=== PATIENT | male | born 1975 | race Hispanic/Latino ===

== ENCOUNTER 2016-10-07 17:08 | Inpatient (IN) | payer OTHER, MEDICARE ==
[~2016-10-07] VITALS: Ht 177.8 cm; Wt 72.4 kg
[~2016-10-07 17:08] MED LIST: CLONAZEPAM1 MG PO; DEPAKOTE ER 25250 MG PO; DOLOPHINE10 MG PO; GABAPENTIN TAB600 MG PO; OXYCODONE HCL30 MG PO
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
--- NOTE | 2016-10-07 17:20 | NUR ---
SECURITY WANDED PT AND PT CHANGED INTO BLUE SCRUBS
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
--- NOTE | 2016-10-07 17:40 | NUR ---
DR MEAD AT BEDSIDE FOR EVAL
--- NOTE | 2016-10-07 17:49 | NUR ---
PT TRANSFERRED TO RM 15 WITHOUT ANY INCIDENT. IN RM REST AT THIS TIME SIITER ORDER FOOD TRAY
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
--- NOTE | 2016-10-07 18:40 | NUR ---
BLOOD WORK COLLECTED AND SENT TO LAB RAINBOW SET UNABLE TO COLLECT URINE AT THIS TIME PT STATED UNABLE TO VOID CONTAINER OF WATER GIVE TO PT FOR PO REHYDRATION PT FOOD TRAY ARRIVED AND GIVEN TO PT IS EAT AT THIS TIME SITTER AT BEDSIDE
[2016-10-07 18:44] LABS: ABSOLUTE BASOPHIL COUNT 0 /CUMM (0.0-0.2); ABSOLUTE EOSINOPHIL COUNT 0 /CUMM (0.0-0.7); ABSOLUTE GRANULOCYTE CT 5.6 /CUMM (1.4-6.5); ABSOLUTE LYMPH COUNT 1.7 /CUMM (1.2-3.4); ABSOLUTE MONOCYTE COUNT 0.2 /CUMM (0.10-0.60); BASOPHIL % 0.3 % (0.0-2.0); EOSINOPHIL % 0.2 % (0-5); GRANULOCYTE % 74.3 % (42.2-75.2); HEMATOCRIT 42.3 % (42-52); MEAN CORPUSCULAR HGB 30.8 PG (27.0-31.0); MEAN CORPUSCULAR HGB CONC 33.8 G/DL (33.0-37.0); MEAN CORPUSCULAR VOLUME 91.1 FL (80.0-94.0); PLATELET COUNT 203 /CUMM (130-400); RBC DISTRIBUTION WIDTH 13.1 % (11.5-14.5); RED BLOOD CELL CT 4.64 /CUMM (4.70-6.10); WHITE BLOOD CELL COUNT 7.5 /CUMM (4.8-10.8)
--- NOTE | 2016-10-07 18:53 | NUR ---
PT ABLE TO GIVE URINE AT THIS TIME...TRIO COLLECTED AND SENT TO LAB
[2016-10-07] MEDS ORDERED: ROXICODONE5 M1 PO (19:25)
--- NOTE | 2016-10-07 19:28 | NUR ---
PT ASLEEP AT THIS TIME, LYING ON LEFT SIDE. RESPIRATIONS EQUAL AND UNLABORED. SITTER AT DOOR.
--- NOTE | 2016-10-07 20:26 | NUR ---
PT ASLEEP AT THIS TIME. RESPIRATIONS EQUAL AND UNLABORED. SITTERS PRESENT FOR SAFETY.
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
--- NOTE | 2016-10-07 23:02 | NUR ---
PT ASLEEP AT THIS TIME. RESPIRATIONS EQUAL AND UNLABORED.
--- NOTE | 2016-10-08 01:04 | NUR ---
PT SLEEPING. EASILY AROUSED TO VERBAL STIMULATION. RESP UNLABORED. SITTER AT BEDSIDE.
--- NOTE | 2016-10-08 04:36 | NUR ---
PT SLEEPING. RESP UNLABORED. NO APPARENT DISTRESS, SITTER AT BEDSIDE.
--- NOTE | 2016-10-08 05:45 | NUR ---
PT C/O 9/10 LEG PAIN. PT MEDICATED WITH 30 MG OXYCODONE PER ORDER.
--- NOTE | 2016-10-08 06:30 | NUR ---
PT REPORTS PAIN DECREASING AFTER BEING MEDICATED
--- NOTE | 2016-10-08 07:12 | NUR ---
PT APPEARS TO BE SLEEPING AT THIS TIME REGULAR RESPIRATIONS AND EQUAL CHEST RISE AND FALL NOTED SITTER PRESENT IN BH AREA AWAITING CRISIS DISPO TODAY
--- NOTE | 2016-10-08 08:39 | NUR ---
PT RESTING IN ROOM AT THIS TIME; STATES HE FEELS "SO SO". DENIES NEEDING ANYTHING ELSE AT THIS TIME. CRISIS INTO EVAL.
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
--- NOTE | 2016-10-08 08:55 | NUR ---
ADDITIONAL OJ PROVIDED.
--- NOTE | 2016-10-08 08:55 | NUR ---
MED WITH MEDS PER NOV. PT VERIFIED ALL DOSAGES. TOLERATED ALL WELL. DENIES COMPLAINTS REMAINS CALM AND COOPERATIVE; PLEASANT
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
--- NOTE | 2016-10-08 11:03 | NUR ---
PT SLEEPING. WAKES TO VOICE AND STATES HE FEELS "GOOD, THE MEDICATIONS WORKED". B/P 90/52. PER MD RICKS, OK TO LET PT EAT LUNCH AND RE CHECK. SITTER REMAINS.
--- NOTE | 2016-10-08 11:31 | NUR ---
PT HAS EATEN LUNCH. REPEAT B/P 100/55. PT SITTING UP CONVERSING WITH NO COMPLAINTS, "I AM OK, JUST DEPRESSED". DENIES ANY PAIN. SITTER REMAINS.
--- NOTE | 2016-10-08 11:37 | NUR ---
REPORT GIVEN TO DAVID IN CPS. TRANSPORT CALLED.
--- NOTE | 2016-10-08 11:45 | NUR ---
ALL BELONGINGS AND VALUABLES HANDED TO MOUNIKA FROM SECURITY AND [facility] MAKSIM PT IN POSSESSION OF PROSTHESIS. AWAKE, ALERT AND CONVERSANT WITH NO COMPLAINTS.
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
[2016-10-08 13:22] VITALS: BP 103/50
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
[2016-10-08 16:17] VITALS: BP 109/62
--- NOTE | 2016-10-08 21:54 | NUR ---
PT IS CALM, COOPERATIVEWITH STAFF AND PEERS, AND COMPLIANT WITH UNIT RULES. PT IS MOSTLY IN ROOM, SLEEPING. PT IS ISOLATIVE AND WITHDRAWN, SPENDING LONG PERIODS IN ROOM. PT MOOD IS STABLE, AFFECT IS EUTHYMIC, COMMUNICATION IS NORMAL, AND APPETITE IS NORMAL.
--- NOTE | 2016-10-08 22:01 | NUR ---
PT MADE COMMENT IN REGARDS TO SI DURING 1600 VITALS. WHEN PT WAS QUESTIONS TO WHETHER HE HAD A PLAN PT DENIED, AND RESPONDED "NO" WHEN ASKED IF PT WOULD ATTEMPT TO CARRY ANYTHING OUT ON UNIT. CHARGE NURSE WAS NOTIFIED FOLLOWING THE EVENT.
[2016-10-09 07:39] VITALS: BP 119/76
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
--- NOTE | 2016-10-09 14:04 | NUR ---
PT IS COMPLIANT AND COOPERATIVE. MOOD IS STABLE WITH A FLAT AFFECT. PT DENIES SI AT THIS TIME, C/O CHRONIC PAIN. PT HAS BEEN WITHDRAWN AND ISOLATIVE IN ROOM MAJORITY OF DAY. PT PRESENT ON UNIT FOR MEALS AND VITALS. PT HAS REFUSED GROUPS. VITALS ARE STABLE, APPETITE IS GOOD.
[2016-10-09 15:57] VITALS: BP 134/69
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
--- NOTE | 2016-10-09 21:28 | NUR ---
PT HAS BEEN SLEEPING IN ROOM FOR MAJORITY OF EVENING. SLEPT THROUGH WRAP UP MEETING SO PT DID NOT ATTEND. WHEN VISIBLE ON UNIT PT IS MED SEEKING. SOCIAL WITH PEERS AND STAFF. NO SI REPORTED. PT HAS A STABLE MOOD AND IRRITABLE AFFECT AT TIMES.
--- NOTE | 2016-10-10 03:33 | NUR ---
PT. SLEPT WELL THIS SHIFT.
[2016-10-10 07:45] VITALS: BP 127/69
--- NOTE | 2016-10-10 09:27 | NUR ---
PT STATED WHEN ASKED THAT HE HAS SOME SUICIDAL THOUGHTS. HE DENIES ANY URGES TO ACT ON THOUGHTSW AND FEELS SAFE IN THE HOSPITAL. PT APPEARS SEDATED
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
--- NOTE | 2016-10-10 11:04 | SOCIAL WORKER PROG NOTE PSYCH ---
Social Work Progress Note Progress Note Patient continues to report +SI with no plan or intent to hurt himself while in the hospital. Patient has been sleeping frequently throughout the day, reporting feeling depressed and unmotivated. Patient reports that he has no support in the area and reports that family does not want to be involved with him. He reported that he may reach out to his mother and see if she would like to come in for a family meeting. He reports that his primary support is his girlfriend who lives in [place]. Patient encouraged to attend groups on the unit and reach out to local family for support.
--- NOTE | 2016-10-10 12:13 | NUR ---
PT APPEARS SEDATED ALL MORNING. HE DID NOT ATTEND ANY GROUPS AND IS FOCUSED ON HIS PAIN ISSUES AND HIS PAIN MEDS.PT STATED HE HAS SOME SUICIDAL THOUGHTS BUT WOULD NOT ACT ON THOUGHTS IN THE HOSPITAL
[2016-10-10 12:24] VITALS: BP 134/57
[2016-10-10 15:54] VITALS: BP 120/61
[2016-10-10 19:45] VITALS: BP 128/68
--- NOTE | 2016-10-10 21:51 | NUR ---
PT IS OFTEN LETHARGIC, SLEEPING LONG PERIODS IN ROOM, OUT OF MILIEU. PT IS GENERALLY COOPERATIVE WITH STAFF AND PEERS, AND COMPLIANT WITH UNIT RULES. PT MOOD IS STABLE, AFFECT IS EUTHYMIC, COMMUNICATION IS NORMAL, AND APPETITE IS NORMAL. PT DENIES SI AT THIS TIME.
--- NOTE | 2016-10-11 04:18 | NUR ---
SLEPT WELL OVERNIGHT. NO COMPLAINTS OFFERED.
[2016-10-11 09:05] VITALS: BP 142/74
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
[2016-10-11 12:15] VITALS: BP 139/79
--- NOTE | 2016-10-11 13:23 | NUR ---
Pt is present on the unit and does interact with peers and staff, attends groups however minimal interactions, mood is stable with flat depressed affect, reported passive SI today no plan or intent - this was communicated to Dr. Barba as well, has + appetite, no other complaints or issues reported or observed.
[2016-10-11 15:39] VITALS: BP 132/70
[2016-10-11 19:15] VITALS: BP 137/75
--- NOTE | 2016-10-11 19:47 | NUR ---
PT IS STABLE WITH BRIGHT FULL RANGE OF AFFECT. LESS LETHARGIC THIS AFTERNOON AND INTERACTING WITH PEERS/STAFF. WAS OUT IN THE COMMUNITY AND WATCHING A MOVIE WITH PEERS. CURRENTLY IN BED SLEEPING. NO COMPLAINTS. VS ARE STABLE AND DENIES AND SI/HI TO THIS MHW.
[2016-10-12 07:47] VITALS: BP 121/69
[2016-10-12 12:11] VITALS: BP 137/64
--- NOTE | 2016-10-12 13:29 | NUR ---
PT IS ISOALTIVE IN ROOM FOR MOST OF THE SHIFT. PT DROWSY AND WILL FALL ASLEEP IN WHEELCHAIR RANDOMLY AT TIMES. PT HAS NOT BEEN ATTENDING GROUPS. PT DOES COME OUT OF ROOM WHEN ASKED FOR VITALS AND MEALS. PT REPROTED SI THOUGHTS BUT HAD NO PLAN AND SAY THEY ARE JUST THOUGHTS. PT SAID HE WILL ALERT STAFF IF PLAN FORMS.
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
[2016-10-12 15:44] VITALS: BP 135/64; BP 144/64
[2016-10-12 19:43] VITALS: BP 148/73
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
--- NOTE | 2016-10-12 21:11 | IP INCIDENTAL NOTE PSYCH ---
Incidental Note Notation: patient found to have a number of his roxycodone pills in his room; appeared to be worn down; likely hoarding them. Discussed w/ RN to continue doing mouth checks, change to VPA liquid 500mg twice daily (starting tmr bc he is on extended release formulation, and crush roxycodone pills.
--- NOTE | 2016-10-12 21:36 | NUR ---
PT MADE SI STATEMENT DURING 1600 VITALS. DENIED HAVING A PLAN, DENIED HAVING WILL TO CARRY OUT ON UNIT. CHARGE NURSE WAS NOTIFIED AFTER EVENT.
--- NOTE | 2016-10-12 22:59 | NUR ---
BEDTIME MEDICATIONS ADMINISTERED; DEPAKOTE 50OMG LIQUID GIVEN; PT'S KLONOPIN 1MG, METHADONE 10MG, ZYPREXA 10MG, AND ROXYCODONE 30MG WERE ALL CRUSHED AND GIVEN TO PATIENT IN APPLESAUCE; MOUTH CHECK DONE, INCLUDING UNDER PATIENT'S TONGUE TO VERIFY THAT DEPAKOTE AND MEDS IN APPLESAUCE WERE SWALLOWED.
--- NOTE | 2016-10-13 07:03 | NUR ---
PATIENT SLEPT ALL NIGHT.
[2016-10-13 07:57] VITALS: BP 136/84
[2016-10-13 12:26] VITALS: BP 108/55
--- NOTE | 2016-10-13 13:28 | SOCIAL WORKER PROG NOTE PSYCH ---
Social Work Progress Note Progress Note Patient continues to endorse +SI today with no plan or intent but making comments such as "I wish I would just ." Patient reports not feeling safe to leave the hospital and was concerned when we started to discuss discharge. Patient refusing family involvement in treatment and is vague as to why he does not want family involved. Patient reports that he is attending groups and is trying to refrain from sleeping throughout the day. Patient difficult to engage in conversation and appears to possibly have ulterior motives as to why he needs to continue hospitalization.
--- NOTE | 2016-10-13 14:18 | NUR ---
PT ATTENDED ONE GROUP TODAY AND WAS UNABLE TO IDENTIFY A GOAL FOR HIMSELF . HE DENIED SUICIDAL THOUGHTS OR THOUGHTS OF SELF HARM. HE IS TAKING HIS MEDS AND APPEARS SEDATED. HE IS IN BED MOST OF THE DAY
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
[2016-10-13 16:14] VITALS: BP 118/58
[2016-10-13 19:35] VITALS: BP 137/66
--- NOTE | 2016-10-13 22:40 | NUR ---
Pt is bed during change of shift mood is stable little dizzy. No behavioral issues noted during the day, vital signs are stable appetite is good. will continue to monitor the pt overnight.
--- NOTE | 2016-10-14 04:52 | NUR ---
SLEPT POORLY, AWAKE IN INTERVALS NOT KNOWING WHAT HE WANTED EACH TIME. DOZING OFF IN WHEELCHAIR.
[2016-10-14 07:48] VITALS: BP 130/73
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
[2016-10-14 12:24] VITALS: BP 132/60
--- NOTE | 2016-10-14 14:39 | NUR ---
PT WAS IN AND OUT OF THE MILIEU. PT DID ATTEND PLANNING MEETING, AND PARTICIPATED, ALSO WENT TO FOCUS GROUP BUT ACCORDING TO FACILIATOR HE SLEPT THROUGH IT. IN THE MILIEU PT HAS SOME INTERACTIONS WITH PEERS AND STAFF BUT MAINLY KEEPS TO SELF. WHEN ASKED PT DOES HAVE THOUGHTS TO HURT HIMSELF, BUT DOES NOT HAVE A PLAN.
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
[2016-10-14 16:00] VITALS: BP 126/58
--- NOTE | 2016-10-14 17:03 | NUR ---
At 1600 vital signs pt reported passive SI, no plan, feels safe on the unit and would not try and harm self, Dr. Fatima informed of this as well, no further orders. Pt is present on the unit, social with peers and staff at times, pleasant to interact with, no other issues or concerns, all staff aware as well.
[2016-10-14 20:22] VITALS: BP 151/79
--- NOTE | 2016-10-14 22:47 | NUR ---
PT WITH THOROUGH MOUTH CHECKS NOW. ATTENDED AA MTG. SOCIAL WITH [employer] PEERS. IN BED EARLY. -SI, -HI, -AH, -VH.
--- NOTE | 2016-10-15 04:52 | NUR ---
PT UP X 1 FOR ROXYCODONE FOR 8/10 LEG AND LOWER BACK PAIN. SLEPT OTHERWISE.
[2016-10-15 07:48] VITALS: BP 141/80
--- NOTE | 2016-10-15 11:31 | NUR ---
PT IS STABLE WITH CONSTRICTED AFFECT. PT IS VERY LETHARGIC AND IS SEEN SLEEPING AT RANDOM INTERVALS SUCH WHEELING TO HIS ROOM AND FALLING ASLEEP IN THE HALLWAY. PT IS HOPEFULL AND IS ATTENDING ALL GROUPS. PT REPORTED HE WAS SUPPOSE TO BE IN COURT TODAY YET HE NEVER TOLD THE SW THIS SO NOW HE IS TRYING TO GET PAPERWORK TO SHOW HE IS CURRENTLY ON AN INPATIENT PSYCHIATRIC FACILITY. VS ARE STABLE AND DENIES ANY SI/HI TO THIS MHW.
[2016-10-15 12:18] VITALS: BP 141/66
[2016-10-15 15:32] VITALS: BP 142/64
--- NOTE | 2016-10-15 16:06 | SOCIAL WORKER PROG NOTE PSYCH ---
Social Work Progress Note Progress Note Patient continues to endorse passive SI with no specific plan. Patient continues to appear sedated on the unit and participates minimally in his treatment. Patient informed me today that he has a court date [facility] and would like me to send letter informing them that he is in the hospital. Patient was vague when I asked what the court date was in reference to. I checked the judicial website and patients court date was yesterday, 10/14/16 , and charges were as follows: breach of peace 2nd deg, criminal mischief 3rd deg, failure to appear 2nd deg, use motor vehicle wo prmission; forgery 3rd deg and larceny 3rd deg. I faxed a letter to [place] bank vault clerk office stating patient is present in the hospital and discharge date is to be determined.
--- NOTE | 2016-10-15 17:10 | CP SOUTH PROGRESS NOTE PSYCH ---
Psych (Inpt) Progress Note Progress Note Include the following elements, when applicable: Involvement in the active treatment of the patient with behavioral observations of the patient and the patient's response to the treatment. Review of the ongoing treatment process in the context of the treatment plan. Indication of how multi-disciplinary staff members are carrying out the treatment plan. Plans for future interventions and recommendations for revision of the treatment plan. Liaison with other physicians/providers. Progress Note: Case and treatment plan discussed in team meeting. Staff reports that the patient is very sedated. Continues to report SI. Patient seen at 3:13 pm. Appears awake and alert. Feels "the same as yesterday." Reports he still feels sedated. I suggested it could be the opiates, but he believes it is due to his psychiatric medication. Reports his pain is okay. Agrees to reduce oxycodone from 30 mg to 20 mg doses effective tomorrow morning. Reports his mood is bad. Sad 10/10. Anxiety 10/10. Feels hopeless, helpless, worthless and guilty. Report SI, "like I just want to get it over with." Gives a safety promise for here. Reports HI toward brother-in- law, "not sure if homicial or really p-ssed off and want to hurt him." Denies AH. Reports occasional VH of shadows in his peripheral vision. Reports paranoia of the shadows. Sleep: okay. I advised patient to cut down on daytime napping. Appetite: "bad, not that great." Energy: "not that great either." IMPRESSION: Slow progress. Continue present treatment plan. Monitor response to Lexapro, which was started yesterday. Will reduce oxycodone effective tomorrow.
[2016-10-15 20:02] VITALS: BP 134/76
--- NOTE | 2016-10-15 21:35 | NUR ---
PT IS CALM, COOPERATIVE WITH STAFF AND PEERS, AND COMPLIANT WITH UNIT RULES. PT IS LETHARGIC, FALLING ASLEEP WHETHER IN MILIEU OR IN PT ROOM. MOOD IS STABLE, AFFECT IS EUTHYMIC TO FULL RANGE, COMMUNICATION IS NORMAL, AND APPETITE IS NORMAL. PT DENIES SI AT THIS TIME.
--- NOTE | 2016-10-16 05:31 | NUR ---
PT APPEARED TO SLEEP. ROXYCODONE BEING DECREASED.
[2016-10-16 07:30] VITALS: BP 133/72
--- NOTE | 2016-10-16 10:19 | NUR ---
Dr. Fatima aware of EKG results from 10/14/16, no further orders at this time.
--- NOTE | 2016-10-16 10:44 | NUR ---
Elizabeth Johnson saw black and white copy of EKG from 10/14/16 today (10/16/16 @ 1040am) and no concerns or further orders at this time.
--- NOTE | 2016-10-16 11:59 | NUR ---
Pt appears less sedated today, attending planning meeting and focus group where he reported ok mood/sleep, interacting appropriately with peers, when asked at 0800 vitals re: any thoughts to harm self/SI pt said yes (passive) no plan while on unit, Dr. Fatima and interdisciplinary group aware during team meeting, overall present on the unit with no issues or compliants, does intermittently take naps or retreat to room.
[2016-10-16 12:09] VITALS: BP 132/62
--- NOTE | 2016-10-16 14:30 | SOCIAL WORKER PROG NOTE PSYCH ---
Social Work Progress Note Progress Note Pt reports feeling tired, he didnt sleep well last night, at the time of this meeting he was in bed, he woke up slightly to talk, but offered he was feeling very depressed, reports small imporvement in mood since admission, He may have a visit with family on Thursday, pt speech was not clear as he was still sleepy. Pt states he had no needs/concerns at this time.
--- NOTE | 2016-10-16 14:38 | CP SOUTH PROGRESS NOTE PSYCH ---
Psych (Inpt) Progress Note Progress Note Include the following elements, when applicable: Involvement in the active treatment of the patient with behavioral observations of the patient and the patient's response to the treatment. Review of the ongoing treatment process in the context of the treatment plan. Indication of how multi-disciplinary staff members are carrying out the treatment plan. Plans for future interventions and recommendations for revision of the treatment plan. Liaison with other physicians/providers. Progress Note: Case and treatment plan discussed in team meeting. Staff reports that the patient still nods off a lot. Still eating a lot. Depakote level was 47.9. Reporting suicidal ideation. More social and more alert. QTC on 10/14/15 was for 486. Patient seen at 10:52 AM. He is resting in bed. Reports he attended groups and played charades. Feels a little aggravated. Reports he called his daughter's mother and his 16-year-old daughter reportedly is not behaving well. Mood is a little better than yesterday. Rates sad mood maybe 10/10 and anxiety about 8/ 10. Affect is calm and blunted to depressed. Feels hopeless, helpless, worthless and very guilty. Reports having suicidal ideation but suicidal thoughts have gotten better. He gives a safety promise for here. Denies homicidal ideation. Denies auditory hallucinations. Reports visual hallucinations of shadows. Reports paranoia related to the shadows. Describes sleep as okay, on and off. Appetite: okay. Energy: low. IMPRESSION: Slow progress. Continue present treatment plan. Continues to require inpatient level of care. Will target discharge for early next week. Will increase Depakote dose and recheck level in 3 days.
--- NOTE | 2016-10-16 15:35 | IP INCIDENTAL NOTE PSYCH ---
Incidental Note Notation: EKG this admission and priors from 08/[address] Johnson, who is not concerned. He found J-point elevation, not significant.
[2016-10-16 15:50] VITALS: BP 130/75
[2016-10-16 19:27] VITALS: BP 147/74
--- NOTE | 2016-10-16 21:53 | NUR ---
PT IS CALM, COOPERATIVE WITH STAFF AND PEERS, AND COMPLIANT WITH UNIT RULES. PT IS HIGHLY LETHARGIC, SLEEPING WHETHER IN MILIEU, OR IN PT ROOM. PT IS INTERACTS WELL WITH PEERS. MOOD IS STABLE, AFFECT IS EUTHYMIC, COMMUNCIATION IS NORMAL, AND APPETITE IS NORMAL. PT DENIES SI AT THIS TIME.
[2016-10-17 07:13] VITALS: BP 145/75
[2016-10-17 11:59] VITALS: BP 132/68
--- NOTE | 2016-10-17 13:24 | SOCIAL WORKER PROG NOTE PSYCH ---
Social Work Progress Note Progress Note Patient continues to endorse intermittent and passive SI with no plan. Patient continues to appear lethargic and minimally participating in his treatment. Patient reporting that he feels stressed about discharging the hospital but will not engage in conversation regarding stressors. Patient speaks minimally when we meet and offers little to no complaints and only shares that he is still having suicidal thoughts. Patient informed to prepare thinking about discharge from the hospital sometime next week.
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
--- NOTE | 2016-10-17 13:41 | NUR ---
PT STATED HIS GOAL WAS TO TRY AND ATTEND ALL THE GROUPS TODAY.HE WAS ABLE TO ATTEND THE MORNING GROUPS BUT ISOLATED IN HIS ROOM IN THE AFTERNOON. HE DENIES ANY THOUGHTS OF SUICVIDE OR SELF HARM AT THIS TIME. HE IS COMPLIANT WITH HIS MED REGIME
--- NOTE | 2016-10-17 14:02 | CP SOUTH PROGRESS NOTE PSYCH ---
Psych (Inpt) Progress Note Progress Note Include the following elements, when applicable: Involvement in the active treatment of the patient with behavioral observations of the patient and the patient's response to the treatment. Review of the ongoing treatment process in the context of the treatment plan. Indication of how multi-disciplinary staff members are carrying out the treatment plan. Plans for future interventions and recommendations for revision of the treatment plan. Liaison with other physicians/providers. Progress Note: Case and treatment plan discussed in team meeting. Staff reports that the patient is highly lethargic. Sleeps in the milieu. Falls asleep mid-sentence. Apparently he missed a court date for forgery charge on Thursday. Patient seen at 11:36 AM. Appears awake and alert. He admits that he fell asleep during group yesterday. Affect is calm and euthymic. Reports mood as decent. Rates sad mood 10, reporting "I'm still p-ssed about my money." Rates anxiety about 10. Denies feeling hopeless or helpless. Feels worthless because he lost his money. Feels guilty because he feels he could have been more cautious with his money. Reports suicidal ideation and reports homicidal ideation but he promises he will not act on either. Denies auditory hallucinations. Reports visual hallucinations of shadows at night. Reports sleep is good. Describes appetite as "it's good too." Reports energy is good. Tolerating medications well, without complaint. IMPRESSION: Slow progress. Continue present treatment plan. We will be checking a Depakote level on Thursday and repeat EKG on Thursday to check QTc. Patient agrees to discontinuation of morning Klonopin, which could be contributing to his sedation. Upon discharge, the patient plans to go home and to follow-up at [facility]. Anticipate likely discharge on Thursday. Patient has been refusing NicoDerm, so we will discontinue it.
[2016-10-17 16:03] VITALS: BP 141/71
[2016-10-17 19:37] VITALS: BP 128/72
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
--- NOTE | 2016-10-18 05:37 | NUR ---
PT APPEARED TO SLEEP WELL. UP EARLY FOR ROXYCODONE.
[2016-10-18 07:58] VITALS: BP 122/61
[2016-10-18 12:34] VITALS: BP 136/71
--- NOTE | 2016-10-18 12:50 | NUR ---
PT ISOLATED IN HIS ROOM ALL MORNING. HE WAS OOB FOR VS..MEDS AND MEALS ONLY. HE DID NOT ATTEND ANY GROUPS. WHEN ASKED HE REPORTED SOME SUICIDAL THOUGHTS BUT DENEIS URGE TOACT ON THOUGHTS. DR FU NOTIFIED
--- NOTE | 2016-10-18 13:23 | CP SOUTH PROGRESS NOTE PSYCH ---
Psych (Inpt) Progress Note Progress Note Include the following elements, when applicable: Involvement in the active treatment of the patient with behavioral observations of the patient and the patient's response to the treatment. Review of the ongoing treatment process in the context of the treatment plan. Indication of how multi-disciplinary staff members are carrying out the treatment plan. Plans for future interventions and recommendations for revision of the treatment plan. Liaison with other physicians/providers. Progress Note: Pt seen after lunch. He noted that feels slightly anxious with reduction of klonopin. Spoke to patient about the risk of sedation with multiple opiates and klonopin as well as risk for QTc prolongation especially with methadone. He decided not to make any changes to medication regimen. Looking forward to discharge Thursday. Denies SI or HI. Current Medications Sig/Karissa Start time Last Medication Dose Route Stop Time Status Admin Clonazepam 0.5 MG AT BEDTIME 10/14 2200 AC 10/17 PO 10/19 2159 2119 Escitalopram Oxalate 10 MG DAILY 10/14 1335 AC 10/18 PO 1221 Gabapentin 600 MG TID 10/14 1600 AC 10/18 PO 1221 Methadone HCl 10 MG 4 TIMES/DAY 10/08 1400 AC 10/18 PO 1220 Nicotine 2 MG Q2 HRS NEEDED PRN 10/08 1030 AC 10/15 PO 2107 Olanzapine 10 MG AT BEDTIME 10/10 2200 AC 10/17 PO 2119 Oxycodone HCl 20 MG Q4P PRN 10/16 1145 AC 10/18 PO 0512 Valproic Acid 500 MG DAILY@1000 10/17 1000 AC 10/18 PO 122 Valproic Acid 750 MG AT BEDTIME 10/16 2200 AC 10/17 PO 2119 Laboratory Tests 10/16 0600 Toxicology Valproic Acid (50 - 120 ug/mL) 47.9 L Vital Signs Date Time Temp Pulse Resp B/P Pulse O2 O2 Flow FiO2 Ox Delivery Rate 10/18 1234 68 136/71 10/18 0758 97.0 72 122/61 10/17 1937 97.2 69 128/72 10/17 1603 78 141/71 MSE Appears as stated age. Cooperative behavior, good, appropriate eye contact. Nl speech rate and prosody. No psychomotor retardation or agitation. Mood fine Affect slightly anxious, constricted, appropriate, non-liable. Linear and goal directed thought process. Denies SI or HI. Does not appear to be responding to internal stimuli. Denies AVHs, paranoia, or delusions. I/J: limited A/P: Pt with hx of unspecified mood disorder and chronic pain with improved mood. Concern for sedation one day ago and falling asleep while speaking. Now alert today. - Continue current medication regimen - VPA level on Thursday - Encourage intergration into milieu
[2016-10-18 16:21] VITALS: BP 143/60
[2016-10-18 19:40] VITALS: BP 129/74
--- NOTE | 2016-10-18 22:30 | NUR ---
PT IS VISIBLE ON UNIT, WATCHING TV AND SOCIALIZING WITH PEERS. PLEASANT AND COOPERATIVE. ATTENDED WRAP UP MEETING AND PARTICIPATED. NO COMPLAINTS OR SI REPORTED. PT HAS A STABLE MOOD AND FULL RANGE AFFECT.
[2016-10-19 07:52] VITALS: BP 132/67
--- NOTE | 2016-10-19 09:00 | CP SOUTH PROGRESS NOTE PSYCH ---
See Addendum Psych (Inpt) Progress Note Progress Note Include the following elements, when applicable: Involvement in the active treatment of the patient with behavioral observations of the patient and the patient's response to the treatment. Review of the ongoing treatment process in the context of the treatment plan. Indication of how multi-disciplinary staff members are carrying out the treatment plan. Plans for future interventions and recommendations for revision of the treatment plan. Liaison with other physicians/providers. Progress Note: Pt notes awake 1am but was able to fall back asleep. He notes mood is "fine." Denies SI or HI. Very future orientated to "getting out of here." Was concerned that [facility] not arranged for discharge tomorrow. Denies psychotic sx. Current Medications Sig/Karissa Start time Last Medication Dose Route Stop Time Status Admin Al Hydroxide/Mg 30 ML Q8P PRN 10/18 1700 AC 10/18 Hydroxide PO 1654 Clonazepam 0.5 MG AT BEDTIME 10/14 2200 AC 10/18 PO 10/19 2159 2124 Diphenhydramine HCl 50 MG AT BEDTIME PRN 10/19 0830 AC PO Escitalopram Oxalate 10 MG DAILY 10/14 1335 AC 10/19 PO 0759 Gabapentin 600 MG TID 10/14 1600 AC 10/19 PO 0759 Methadone HCl 10 MG 4 TIMES/DAY 10/08 1400 AC 10/19 PO 0800 Nicotine 2 MG Q2 HRS NEEDED PRN 10/08 1030 AC 10/15 PO 2107 Olanzapine 10 MG AT BEDTIME 10/10 2200 AC 10/18 PO 2124 Oxycodone HCl 20 MG Q4P PRN 10/16 1145 AC 10/19 PO 0139 Valproic Acid 500 MG DAILY@1000 10/17 1000 AC 10/18 PO 1221 Valproic Acid 750 MG AT BEDTIME 10/16 2200 AC 10/18 PO 2124 Laboratory Tests 10/19 0538 Toxicology Valproic Acid (50 - 120 ug/mL) 55.6 Vital Signs Date Time Temp Pulse Resp B/P Pulse O2 O2 Flow FiO2 Ox Delivery Rate 10/19 0752 96.3 72 132/67 10/18 1940 97.1 68 129/74 10/18 1621 72 143/60 10/18 1234 68 136/71 MSE Appears as stated age. Cooperative behavior, good, appropriate eye contact. Nl speech rate and prosody. No psychomotor retardation or agitation. Mood fine Affect slightly anxious, constricted, appropriate, non-liable. Linear and goal directed thought process. Denies SI or HI. Does not appear to be responding to internal stimuli. Denies AVHs, paranoia, or delusions. I/J: limited A/P: Pt with hx of unspecified mood disorder and chronic pain with improved mood. Concern for sedation one day ago and falling asleep while speaking. Now alert today. - Continue current medication regimen - VPA level on Thursday prior to discharge (per pt to discharge Thursday, found one note that stated, "likely discharge Thursday") - Encourage intergration into milieu
[2016-10-19 12:29] VITALS: BP 135/63
--- NOTE | 2016-10-19 14:36 | NUR ---
Pt is observed to be very drowsy/ groggy- falling asleep at inappropriate time and place. Continues to reach out for PRN medcation reporting pain of 8/10 at all time. Pt report good night sleep, mood and affect are depressed/ euthymic, but denies thought of self-harm and to someone else.
[2016-10-19 16:21] VITALS: BP 136/54
[2016-10-19 19:46] VITALS: BP 139/61
--- NOTE | 2016-10-19 20:24 | NUR ---
PT IS LETHARGIC, SLEEPING IN PT ROOM WELL IN [place]. PT IS CALM, COOPERATIVE WITH STAFF AND PEERS, AND COMPLIANT WITH UNIT RULES. MOOD IS STABLE, AFFECT IS EUTHYMIC TO FULL RANGE, COMMUNICATION IS NORMAL, AND APPETITE IS NORMAL. PT DENIES SI AT THIS TIME.
--- NOTE | 2016-10-20 06:46 | NUR ---
PATIENT AWAKE A COUPLE OF TIMES, GIVEN PRN BENADRYL AT 0028, SLEPT MOST OF NIGHT.
[2016-10-20 07:36] VITALS: BP 132/68
[2016-10-20 12:03] VITALS: BP 140/60
[2016-10-20] MEDS ORDERED: NICORELIEF2 MG PO (13:14)
[2016-10-20] MEDS ORDERED: LEXAPRO10 M1 PO (13:18)
[2016-10-20] MEDS ORDERED: OLANZAPINE10 M1 PO (13:19)
[2016-10-20] MEDS ORDERED: DEPAKOTE500 M1 PO (13:25)
--- NOTE | 2016-10-20 13:34 | SOCIAL WORKER PROG NOTE PSYCH ---
Social Work Progress Note Progress Note Patient to discharge the hospital today. Patient offers no complaints at present and wishes to return home today. Patient denies any SI/HI at present and reports feeling safe to return home. Patient plans to follow up with [facility] and will attend a walk in evaluation this week between 12PM-3PM. Patient states that his fiance is home from [place] and will be residing with him. He plans to continue to seek housing in [place] moving forward.
--- NOTE | 2016-10-20 14:13 | CP SOUTH PROGRESS NOTE PSYCH ---
Psych (Inpt) Progress Note Progress Note Progress Note: I discussed this patient's progress to date, current mental status, treatment process in the context of the treatment plan, and discharge planning with staff/ team in the daily morning inpatient team meeting. I also met with the patient myself in individual session. A total of 30 minutes was spent with the patient with more than 50% spent in counseling and/or coordination of care. SUBJECTIVE: "I'm feeling fine. I still see shadows sometimes." OBJECTIVE: Current Medications Sig/Karissa Start time Last Medication Dose Route Stop Time Status Admin Al Hydroxide/Mg 30 ML Q8P PRN 10/18 1700 AC 10/18 Hydroxide PO 1654 Clonazepam 0.5 MG AT BEDTIME 10/14 2200 DC 10/19 PO 10/19 2159 2139 Diphenhydramine HCl 50 MG .STK-MED ONE 10/20 0022 DC PO 10/20 0023 Diphenhydramine HCl 50 MG AT BEDTIME PRN 10/19 0830 AC 10/20 PO 0028 Escitalopram Oxalate 10 MG DAILY 10/14 1335 AC 10/20 PO 0900 Gabapentin 600 MG TID 10/14 1600 AC 10/20 PO 0859 Methadone HCl 10 MG 4 TIMES/DAY 10/08 1400 AC 10/20 PO 0900 Nicotine 2 MG Q2 HRS NEEDED PRN 10/08 1030 AC 10/15 PO 2107 Olanzapine 10 MG AT BEDTIME 10/10 2200 AC 10/19 PO 2129 Oxycodone HCl 20 MG Q4P PRN 10/16 1145 AC 10/20 PO 0625 Valproic Acid 1,000 MG AT BEDTIME 10/19 2200 AC 10/19 PO 2129 Valproic Acid 500 MG DAILY@1000 10/17 1000 AC 10/20 PO 0900 Vital Signs Date Time Temp Pulse Resp B/P Pulse O2 O2 Flow FiO2 Ox Delivery Rate 10/20 1203 77 140/60 10/20 0736 97.6 78 132/68 10/19 1946 96.7 74 139/61 10/19 1621 79 136/54 ASSESSMENT: Patient reports that he feels safe and ready for discharge. States he will feel safe at home. He also states that he has a primary care doctor appointment in the near future, he'll discuss his borderline QT interval at that time. He declines to sign wavers to speak with his primary care doctor. He reports that his anxiety has cleared, however continues to complain of some depression, stating "I'll deal with that. It will go away soon." Denies suicidal ideation, homicidal ideation, auditory hallucinations, paranoid ideation. States that he sleeps well at night, his appetite is good. Speech is well articulated, goal-directed, average in rate, volume and tone. The patient understands the risks/benefits/side effects of the medication and is agreeable to continue taking them. PLAN: Anticipate discharge today. Patient will follow-up at [facility] in [place], and with primary care. Continue with current management as patient is improving. Continue to provide support and encouragement. Continue with current management as patient is improving. Continue to provide support and encouragement.
--- NOTE | 2016-10-20 14:35 | DISCHARGE SUMMARY REPORT-PSYCH ---
Visit Information Visit Dates/Diagnosis' Admission Date: 10/08/16 Discharge Date: 10/20/16 Reason for Admission: Depressed mood, suicidal ideation with plan, homicidal ideation. The patient notes that he has had an increase in symptoms and was "not feeling stable, mentally." He reported feeling Helpless, Hopeless, and worthless with depressed mood and sleep and appetite disturbances. He has been having thoughts to kill himself, via overdose and does have a history of 2 significant overdoses in the past. 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 Psy Discharge Secondary Diag: Stimulant/Cocaine use d/o; HTN; Hx of heart murmur ; Left AKA; Chronic Back pain; disk herniation; Hx of right "leg cancer"; Hx of seiuzre d/o. Boderline QTc 480. Hospital Course Significant Lab Findings: Lab ALT 73 U/L H 10/07/16 1840 AST 47 U/L 10/07/16 1840 BUN 8 mg/dL L 10/07/16 1840 Creatinine 0.5 mg/dL L 10/07/16 1840 TSH 0.299 uIU/mL 10/07/16 1840 Methadone Screen > 735 NG/ML H 10/07/16 1852 Urine Cocaine Screen > 1000 NG/ML H 10/07/16 1852 Urine Opiates Screen > 4000.00 NG/ML H 10/07/16 1852 Valproic Acid 55.6 ug/mL 10/19/16 0538 Course Complications: None Consultations: Patient was seen for admission history and physical by Dr. Mendiola. Please refer to her note for additional information. Allergies: Coded Allergies: Penicillins (Severe, RASH/HIVES 10/08/16) bee pollen (Severe, ANAPHYLAXIS 10/08/16) vancomycin (Severe, HIVES 10/08/16) Hospital Course/TX Response: The patient was monitored on the unit for safety, depression, anxiety, suicidal ideation, homicidal ideation, auditory hallucinations. He participated in multimodal treatments on the unit. In addition to medications which he receives on a regular basis from pain management, he was also medicated with Depakote for mood stability, olanzapine for clear thoughts/auditory and visual hallucinations , and Lexapro for depression and anxiety. He reported tolerating these medications well. The patient declined to sign wavers allowing us to communicate with his medical providers. He also declined to have any family members or friends attend a family meeting. Today, the day of discharge, he reports that he feels safe and ready for discharge. States he will feel safe at home. He also states that he has a primary care doctor appointment in the near future, he'll discuss his borderline QT interval at that time. He declines to sign wavers to speak with his primary care doctor. He reports that his anxiety has cleared, however continues to complain of some depression. Denies suicidal ideation, homicidal ideation, auditory hallucinations, paranoid ideation. Patient states and also believes that he will not kill himself, nor will he kill anyone else. States that he sleeps well at night, his appetite is good. Speech is well articulated, goal-directed, average in rate, volume and tone. The patient understands the risks/benefits/side effects of the medication and is agreeable to continue taking them. Patient will follow-up at [facility] in [place], and with primary care. He reports tolerating his medications well, without complaint. States he feels safe and ready for discharge. Discharge HBIPS - Tobacco Use Treatment Offered Post DC Medications Offered: Script Given-See Med List Post DC Tobacco Treatment Plan: [facility] Program Appt Date: 10/29/16 Program Appt Time: 1600 - EtOH/Drug Use D/O Treatment Offered Post DC Medications Offered: NA-No EtOH/Drug Use D/O Post DC EtOH/SubAbuse TX Plan: NA-No EtOH/Drug Use D/O Metabolic Screening - Screen if on a Neuroleptic Medication - Metabolic screening should include: - Blood Pressure, BMI, Glucose or Hgb A1c, & a - Lipid profile from within the past 365 days. Metabolic Screening () Not Applicable, patient not on a neuroleptic. OR (x) Patient on a neuroleptic(s) . Enter below results for Glucose or Hemoglobin A1C, and lipid panel if obtained during the last 365 days. BMI: 22.800 Blood Pressure: 140/60 Laboratory Results (If applicable): Lab Cholesterol 147 MG/DL 10/12/16 0610 Cholesterol/HDL Ratio 3 % 10/12/16 0610 Glucose 113 mg/dL H 10/07/16 1840 HDL Cholesterol 48 mg/dL 10/12/16 0610 Hemoglobin A1c 5.5 % 10/20/15 0645 LDL Cholesterol, Calc 49 mg/dL L 10/12/16 0610 Triglycerides 254 mg/dL H 10/12/16 0610 Discharge Instructions General Discharge Information Discharge Medications: Discharge Medications- (Dose, route, freq, indication): HOME MEDICATION LIST START taking these NEW Home Medications: Nicotine Dose: ORAL, EVERY 2 HOURS Qty: 30 Transmit to (Nicorelief) 2 MG 2 Milligram NEEDED as needed for Refills: 0 Pharm 1 GUM nicotine craving Divalproex Sodium Dose: ORAL, TWICE DAILY for Qty: 42 Transmit to (Depakote) 500 MG 500 Milligram MOOD STABILITY Refills: 0 Pharm 1 TABLET.DR TAKE ONE TAB OF 500MG IN THE MORNING, AND TWO TABS IN THE EVENING. Escitalopram Oxalate Dose: ORAL, DAILY for Qty: 14 Transmit to (Lexapro) 10 MG 10 Milligram depression Refills: 0 Pharm 1 TABLET Olanzapine Dose: ORAL, AT BEDTIME for Qty: 14 Transmit to (Olanzapine) 10 MG 10 Milligram HALLUCINATIONS Refills: 0 Pharm 1 TABLET CONTINUE taking these Home Medications: OXYCODONE HCL (Oxycodone Dose: ORAL, 5 TIMES A DAY as HCl) 30 MG TAB 30 Milligram needed for PAIN PER PT Methadone Hydrochloride Dose: ORAL, 4 TIMES A DAY for (Dolophine) 10 MG TAB 10 Milligram PAIN CONTROL PER PT Gabapentin (Gabapentin Dose: ORAL, 4 TIMES A DAY for Tab 600MG) 600 MG TAB 600 Milligram PAIN/MOOD PER PT 1: [facility], [address] [place] [address] Your Pref[facility] [place] [address] Multiple Neuroleptics: (x) Not Applicable OR Document below three failed attempts at monotherapy, or a plan to taper to monotherapy, or augmentation of Clozapine. () Patient's Diet: Regular Patient's Activity: No restrictions. DC Disposition: Patient is returning to his home, in [place]. Recommendations: Follow-up at [facility]. Follow-up with primary care doctor. Take medications as directed. Referred To: PT SPECIFIC INFORMATION Post Discharge Referrals Provider Referral Service Date: 10/21/16 Referred To: [[facility]] Notes: [address] [place] [id number] ; Walk-in between noon and 3pm. Copies To: *
--- NOTE | 2016-10-20 15:29 | NUR ---
dISCHARGE aSSESSMENT Pt. discharged to [facility]. Patient reports stable mood/no SI. Meds reviewed with stress on compliance.
== END 2016-10-20 15:28 | DRG 881 ==
LOC: ENRESERVTM → ENRESERVDT → ERH 17:08 → ERHI 10-08 09:26 → CP SOUTH 10-08 09:26 → ENPENDDIS 10-08 09:26 → CP SOUTH 10-08 11:45
PROVIDERS: Emergency Medicine; Nurse Practitioner Psychiatric/Mental Health; ADMIT Psychiatry & Neurology Psychiatry
DX: F32.9 Major depressive disorder, single episode, unspecified (principal); R56.9 Unspecified convulsions; Z89.612 Acquired absence of left leg above knee; F14.90 Cocaine use, unspecified, uncomplicated; I10 Essential (primary) hypertension; G89.29 Other chronic pain; M54.9 Dorsalgia, unspecified; Z85.9 Personal history of malignant neoplasm, unspecified
CPT/HCPCS: 36415; 80307; 93005; 93010; G0480

== ENCOUNTER 2017-11-04 07:26 | Observation (INO) | payer OTHER, MEDICARE ==
[~2017-11-04] VITALS: Ht 182.9 cm; Wt 81.6 kg
[~2017-11-04 07:26] MED LIST changes: +CLONAZEPAM1 M2 PO; +DEPAKOTE500 M1 PO; +EFFEXOR XR150 M1 PO; +EFFEXOR XR75 M1 PO; +GABAPENTIN300 M2 PO; +GABAPENTIN600 M1 PO; +HYDROCORTISO28.35 GM EXT; +KLONOPIN0.5 M1 PO; +LEXAPRO10 M1 PO; +METHADONE HCL10 M1 PO; +NICORELIEF2 MG PO; +NICOTINE PATCH1 EAC2 TOP; +OLANZAPINE10 M1 PO; +OXYCODONE HCL30 M1 PO; +ROXICODONE5 M1 PO; +URECHOLINE10 M1 PO
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
[2017-11-04 08:26] LABS: ABSOLUTE BASOPHIL COUNT 0 /CUMM (0.0-0.2); ABSOLUTE EOSINOPHIL COUNT 0 /CUMM (0.0-0.7); ABSOLUTE GRANULOCYTE CT 4.3 /CUMM (1.4-6.5); ABSOLUTE LYMPH COUNT 2.3 /CUMM (1.2-3.4); ABSOLUTE MONOCYTE COUNT 0.5 /CUMM (0.10-0.60); BASOPHIL % 0.3 % (0.0-2.0); EOSINOPHIL % 0.3 % (0-5); GRANULOCYTE % 60.1 % (42.2-75.2); HEMATOCRIT 41.8 % (42-52); MEAN CORPUSCULAR VOLUME 88.3 FL (80.0-94.0); MEAN PLATELET VOLUME 8.4 FL (7.4-10.4); PLATELET COUNT 252 /CUMM (130-400); RBC DISTRIBUTION WIDTH 14.1 % (11.5-14.5); RED BLOOD CELL CT 4.73 /CUMM (4.70-6.10); WHITE BLOOD CELL COUNT 7.1 /CUMM (4.8-10.8)
[2017-11-04] MEDS ORDERED: XANAX XR1 M1 PO (08:41)
[2017-11-04] MEDS ORDERED: GABAPENTIN600 M1 PO (08:42)
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
[2017-11-05] MEDS ORDERED: BLEPH-105 ML OPH (09:09)
[2017-11-05] MEDS ORDERED: IBUPROFEN600 M1 PO (09:09)
[2017-11-05] MEDS ORDERED: TRAMADOL HCL50 M1 PO (09:09)
[2017-11-05] MEDS ORDERED: FAMCICLOVIR500 M1 PO (09:09)
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
[2017-11-06 13:49] VITALS: BP 133/77
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
== END 2017-11-06 14:42 | disposition still patient (30) ==
LOC: ERH 07:26 → ERHI 23:55 → EDBEDREQ 11-06 14:04 → ENTRNSPT 11-06 14:10 → EDTRNSPTSTS 11-06 14:27 → CMPTRNSPT 11-06 14:40 → ERHI 11-06 14:42
PROVIDERS: Emergency Medicine
DX: R45.851 Suicidal ideations (principal); F31.9 Bipolar disorder, unspecified; F11.20 Opioid dependence, uncomplicated; F32.9 Major depressive disorder, single episode, unspecified; F41.9 Anxiety disorder, unspecified; F14.10 Cocaine abuse, uncomplicated; F17.200 Nicotine dependence, unspecified, uncomplicated; R56.9 Unspecified convulsions; I10 Essential (primary) hypertension; R01.1 Cardiac murmur, unspecified; F43.10 Post-traumatic stress disorder, unspecified; B18.2 Chronic viral hepatitis C; C44.90 Unspecified malignant neoplasm of skin, unspecified
CPT/HCPCS: 6090; 80307; 93005; 93010; G0378; G0463; G0480

== ENCOUNTER 2017-11-06 13:56 | Inpatient (IN) | payer OTHER, MEDICARE ==
[~2017-11-06] VITALS: Ht 177.8 cm; Wt 81.6 kg
[~2017-11-06 13:56] MED LIST changes: +BLEPH-105 ML OPH; +FAMCICLOVIR500 M1 PO; +IBUPROFEN600 M1 PO; +TRAMADOL HCL50 M1 PO; +XANAX XR1 M1 PO
[2017-11-06 15:19] VITALS: BP 129/66
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
[2017-11-06 19:43] VITALS: BP 130/74
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
--- NOTE | 2017-11-07 00:15 | Admission Certification ---
Admission Certification Certification Statement - As attending physician, I certify that at the time of - admission, based on clinical presentation, severity of - symptoms, need for further diagnostic testing and - therapeutic interventions, and risk of adverse outcomes - without in-hospital treatment, in my clinical assessment, - this patient requires an acute hospital stay for a minimum - of two nights or longer. I have also considered psychsocial - factors such as support system, advanced age, financial - issues, cognitive issues, and failed out-patient treatments, - past re-admission history, safety of patient, and lack of - compliance as applicable. Specific rationale supporting this admission is: Depression, suicidal ideation
[2017-11-07 07:28] VITALS: BP 118/74
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
[2017-11-07 12:15] VITALS: BP 133/69
[2017-11-07 15:50] VITALS: BP 131/69
[2017-11-07 19:47] VITALS: BP 138/63
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
[2017-11-08 07:32] VITALS: BP 136/71
[2017-11-08 11:57] VITALS: BP 118/76
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
[2017-11-08 15:43] VITALS: BP 137/78
[2017-11-08 19:41] VITALS: BP 121/72
[2017-11-09 08:01] VITALS: BP 141/76
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
[2017-11-09 12:34] VITALS: BP 122/63
[2017-11-09 16:06] VITALS: BP 131/61
[2017-11-09 19:53] VITALS: BP 131/61
[2017-11-10 07:37] VITALS: BP 136/67
--- NOTE | 2017-11-10 10:58 | SOCIAL WORKER PROG NOTE PSYCH ---
Social Work Progress Note Progress Note BRANDIE NYE [id number] 1975 BRANDIE NYE [id number] Pended Authorization # Client Authorization # Type of Request [id number] CONCURRENT Date of Admission/ Start of Services Requested From Submission Date 11/06/2017 11/10/2017 11/10/2017
[2017-11-10 12:29] VITALS: BP 124/73
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
[2017-11-10 15:56] VITALS: BP 122/72
[2017-11-10 19:41] VITALS: BP 114/68
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
[2017-11-11 08:01] VITALS: BP 125/61
[2017-11-11 12:19] VITALS: BP 129/71
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
[2017-11-11 15:31] VITALS: BP 134/68
[2017-11-11 19:29] VITALS: BP 128/76
[2017-11-12 07:38] VITALS: BP 114/64
--- NOTE | 2017-11-12 07:51 | CP SOUTH PROGRESS NOTE PSYCH ---
Psych (Inpt) Progress Note Progress Note Vital Signs Date Time Temp Pulse Resp B/P B/P Pulse O2 O2 Flow FiO2 Mean Ox Delivery Rate 11/12 0638 96.7 66 114/64 11/11 1929 97.2 76 128/76 Temperature 96.7F;; Pulse 66 bpm;; Blood pressure 128/76 mmHg Patient's progress and treatment plan were reviewed in the treatment team meeting this morning. The treatment team included: Nursing staff, social work staff, group, activity and milieu therapy staff, and psychiatrist MSE: The patient is still talking about thoughts of suicide denied thoughts of homicide no psychomotor agitation or slowing; no change in mood Thought process was linear and goal-directed; Denied feeling paranoid , there were no delusions, denied hallucinations- does not appear to be responding to internal stimuli; Poor reliability/ invested in staying in the hospital as long as he can ? material gain: it is possible that he uses up all his prescriptions in the beginning of the month and then comes to the hospital when he runs out of the Xanax, Methadone and oxycodone (?) Assessment: 42-year-old unreliable patient who presented with suicidal ideation or homicidal ideation patient has been for several months, or even longer, on Xanax, methadone, and oxycodone and (this was confirmed through [place]'s prescription monitoring program website) Plan update Reduce and Klonopin to 1.5 mg at bedtime only. Continue methadone 20 mg at 8 AM in the morning and 20 mg at 8 PM oxycodone regularly scheduled 30 mg at 1 PM, 5 PM, and 10 PM Change Depakote to 750 mg at bedtime VPA level tomorrow continue all other medications the same
[2017-11-12 12:07] VITALS: BP 126/60
[2017-11-12 16:22] VITALS: BP 126/74
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
[2017-11-12 19:29] VITALS: BP 141/73
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
[2017-11-13 07:36] VITALS: BP 134/67
--- NOTE | 2017-11-13 09:10 | SOCIAL WORKER PROG NOTE PSYCH ---
Social Work Progress Note Progress Note Completed insurance P review. Check P website for next review date.
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
[2017-11-13 12:21] VITALS: BP 132/68
[2017-11-13 15:41] VITALS: BP 139/76
[2017-11-13 19:26] VITALS: BP 144/74
[2017-11-14 08:00] VITALS: BP 122/56
--- NOTE | 2017-11-14 11:46 | CP SOUTH PROGRESS NOTE PSYCH ---
Psych (Inpt) Progress Note Progress Note Include the following elements, when applicable: Involvement in the active treatment of the patient with behavioral observations of the patient and the patient's response to the treatment. Review of the ongoing treatment process in the context of the treatment plan. Indication of how multi-disciplinary staff members are carrying out the treatment plan. Plans for future interventions and recommendations for revision of the treatment plan. Liaison with other physicians/providers. Progress Note: Chart reviewed. Progress discussed with nursing staff. Interviewed patient this morning. Patient reports having difficulty sleeping. Otherwise says "I'm feeling dung sad, but maybe a bit better today". Does not ask for med changes aside for trazodone for sleep. Report vague passive SI "I don't want to kill myself but I just feel worthless, hopeless, you know?" Denies AVH. Vitals wnl. No new labs. MSE: CM resting in bed, left AKA, adequately groomed, older appearing than stated age. +psychomotor slowing. speech quiet, o/w wnl. Mood "sad", affect constricted, non-labile. TP log/david. Content wnl. +SI without plan or intent. Denies HI. Denies perceptual disturbance. Cognition grossly intact. I/J somewhat limited. A/P: Mood continues to slowly improve though with ongoing passive SI. Tolerating current medication regimen and dosing adequately. Will trial trazodone 50 mg QHS PRN sleep this evening and check in with him regarding effects tomorrow. Continue remainder of present management.
[2017-11-14 12:06] VITALS: BP 129/65
[2017-11-14 16:24] VITALS: BP 126/55
[2017-11-14 19:58] VITALS: BP 119/69
[2017-11-15 07:41] VITALS: BP 121/62
[2017-11-15 11:54] VITALS: BP 113/52
--- NOTE | 2017-11-15 13:02 | CP SOUTH PROGRESS NOTE PSYCH ---
Psych (Inpt) Progress Note Progress Note Include the following elements, when applicable: Involvement in the active treatment of the patient with behavioral observations of the patient and the patient's response to the treatment. Review of the ongoing treatment process in the context of the treatment plan. Indication of how multi-disciplinary staff members are carrying out the treatment plan. Plans for future interventions and recommendations for revision of the treatment plan. Liaison with other physicians/providers. Progress Note: Chart reviewed. Progress discussed with nursing staff. Interviewed patient this morning in the office. Reports feeling generally well today. Was wondering about his depakote and I reviewed with him the primary team's plan to re-check his liver enzymes tomorrow morning which was satisfactory to him. He reported that "I need a hobby. I'm really into vaping. 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 He denies SI and HI today. Denies AVH. Vitals wnl. No new labs. MSE: CM in wheelchair, left AKA, marginally groomed, older appearing than stated age. +psychomotor slowing. speech quiet, o/w wnl. Mood "not too bad", affect mildly constricted, non-labile. TP log/david. Content wnl. Denies SI/HI. Denies perceptual disturbance. Cognition grossly intact. I/J somewhat limited. A/P: Mood continues to slowly improve . Tolerating current medication regimen and dosing adequately. His sleep/wake cycles are disturbed which seems to be a continuation of poor sleep hygiene while at his home. PSychoed provided re: sleep hygiene. Continue remainder of present management.
[2017-11-15 17:28] VITALS: BP 115/66
[2017-11-15 19:54] VITALS: BP 122/65
[2017-11-16 07:42] VITALS: BP 121/59
--- NOTE | 2017-11-16 10:55 | SOCIAL WORKER PROG NOTE PSYCH ---
Social Work Progress Note Progress Note Higinio is ready for discharge today. No SI/HI. Says he feels a little scared about being alone, but his friend Bryce is picking him up today and he is planning to go [facility]. He was reminded about going to the walk -in evaluation on with [facility]. Talked about feeling tired of living in [place] and it's his goal at some point to move to [place]. When asked why? He shared his congregational beliefs that the world will suffer from a catostophic event in about 20 years and he said people in that region will be safe. He kind of considers himself a "preper". Talked about michael foods and saving things for when the day comes. Friend Bryce arrived around 1pm and Higinio left.
[2017-11-16] MEDS ORDERED: BETHANECHOL PO (11:17)
[2017-11-16] MEDS ORDERED: NICOTINE PATCH1 EAC2 TOP (11:23)
[2017-11-16] MEDS ORDERED: KLONOPIN1 M1 PO (11:23)
[2017-11-16] MEDS ORDERED: TRAZODONE HCL50 M1 PO (11:23)
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
[2017-11-16 12:02] VITALS: BP 118/64
--- NOTE | 2017-11-16 14:30 | SOCIAL WORKER PROG NOTE PSYCH ---
Social Work Progress Note Faxed Referral(s) Referred To: ANIB[facility] Basilio Transition of Care Documents sent: Health Summary Faxed to: [facility] Fax #: [phone] Faxed by: Deanna Duran Date faxed: 11/16/17 Time Faxed: [phone]
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
== END 2017-11-16 12:55 | DRG 885 ==
LOC: CP SOUTH 13:56
DX: F31.9 Bipolar disorder, unspecified (principal); Z89.612 Acquired absence of left leg above knee; F12.90 Cannabis use, unspecified, uncomplicated; F14.90 Cocaine use, unspecified, uncomplicated; F43.10 Post-traumatic stress disorder, unspecified; G89.4 Chronic pain syndrome
CPT/HCPCS: 36415; 93005; 93010

== ENCOUNTER 2018-01-28 09:56 | Inpatient (IN) | payer OTHER, MEDICARE ==
[~2018-01-28] VITALS: Ht 180.3 cm; Wt 86.2 kg
[~2018-01-28 09:56] MED LIST changes: +BETHANECHOL CHL10 M1 PO; +KLONOPIN1 M1 PO; +TRAZODONE HCL50 M1 PO
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
[2018-01-28 16:17] LABS: ABSOLUTE BASOPHIL COUNT 0.1 /CUMM (0.0-0.2); ABSOLUTE EOSINOPHIL COUNT 0 /CUMM (0.0-0.7); ABSOLUTE GRANULOCYTE CT 9.9 /CUMM (1.4-6.5); ABSOLUTE LYMPH COUNT 2.6 /CUMM (1.2-3.4); ABSOLUTE MONOCYTE COUNT 0.8 /CUMM (0.10-0.60); BASOPHIL % 0.8 % (0.0-2.0); EOSINOPHIL % 0.3 % (0-5); GRANULOCYTE % 73.2 % (42.2-75.2); HEMATOCRIT 46.8 % (42-52); MEAN CORPUSCULAR HGB CONC 33.3 G/DL (33.0-37.0); MEAN CORPUSCULAR VOLUME 90.1 FL (80.0-94.0); MEAN PLATELET VOLUME 8.3 FL (7.4-10.4); PLATELET COUNT 242 /CUMM (130-400); RBC DISTRIBUTION WIDTH 13.6 % (11.5-14.5); WHITE BLOOD CELL COUNT 13.5 /CUMM (4.8-10.8)
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
[2018-01-28 17:43] VITALS: BP 124/63
[2018-01-28] MEDS ORDERED: XANAX1 M1 PO (19:02)
[2018-01-28 20:20] VITALS: BP 132/75
[2018-01-29 07:55] VITALS: BP 148/82
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
[2018-01-29 12:43] VITALS: BP 138/56
--- NOTE | 2018-01-29 13:18 | SOCIAL WORKER PROG NOTE PSYCH ---
Social Work Progress Note Progress Note Higinio has been in his room. Attempted to speak with him, but he is feeling ill. He has a fever today. He asked to be left alone.
--- NOTE | 2018-01-29 13:25 | SOCIAL WORKER PROG NOTE PSYCH ---
Social Work Progress Note Progress Note Crisis attempted to meet with pt. Nursing advised to come back at another time due to pt meeting with doctor and not feeling well.
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
[2018-01-29 14:08] LABS: ABSOLUTE BASOPHIL COUNT 0.1 /CUMM (0.0-0.2); ABSOLUTE EOSINOPHIL COUNT 0 /CUMM (0.0-0.7); ABSOLUTE GRANULOCYTE CT 8.3 /CUMM (1.4-6.5); ABSOLUTE LYMPH COUNT 4.6 /CUMM (1.2-3.4); ABSOLUTE MONOCYTE COUNT 1.3 /CUMM (0.10-0.60); BASOPHIL % 0.7 % (0.0-2.0); EOSINOPHIL % 0.2 % (0-5); GRANULOCYTE % 57.9 % (42.2-75.2); HEMATOCRIT 44.4 % (42-52); MEAN CORPUSCULAR HGB 30.4 PG (27.0-31.0); MEAN CORPUSCULAR VOLUME 89.3 FL (80.0-94.0); MEAN PLATELET VOLUME 8.1 FL (7.4-10.4); PLATELET COUNT 284 /CUMM (130-400); RBC DISTRIBUTION WIDTH 13.4 % (11.5-14.5); RED BLOOD CELL CT 4.98 /CUMM (4.70-6.10); WHITE BLOOD CELL COUNT 14.3 /CUMM (4.8-10.8)
--- NOTE | 2018-01-29 16:10 | RADIOLOGY REPORT ---
EXAMINATION: XR KNEE, RIGHT CLINICAL INFORMATION: Fever. Pain. Presumptive diagnosis of right knee infection. COMPARISON: None TECHNIQUE: Four views of the right knee. FINDINGS: The patient is status post total right knee arthroplasty with the prosthetic components well seated within the hopi bone. Suprapatellar knee joint effusion is seen and mild prepatellar soft tissue swelling is noted. No acute fracture or dislocation. No hardware failure. Small well-corticated bone fragment seen along the inferior pole of the patella IMPRESSION: 1. Mild prepatellar soft tissue swelling and suprapatellar knee joint effusion. Findings are nonspecific and may be related to a septic joint versus inflammatory change. Clinical correlation requested. 2. No acute fracture or dislocation. No hardware failure.
[2018-01-29 16:51] VITALS: BP 117/66
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
[2018-01-29 20:09] VITALS: BP 135/61
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
[2018-01-30] MEDS ORDERED: GABAPENTIN300 M2 PO (11:38)
[2018-01-30] MEDS ORDERED: NICOTINE PATCH1 EAC2 TOP (11:38)
[2018-01-30] MEDS ORDERED: ROXICODONE30 M1 PO (11:38)
[2018-01-30] MEDS ORDERED: METHADONE HCL10 M1 PO (11:38)
[2018-01-30] MEDS ORDERED: ABILIFY5 M1 PO (11:38)
[2018-01-30] MEDS ORDERED: LEXAPRO10 M1 PO (11:38)
[2018-01-30] MEDS ORDERED: KLONOPIN1 M1 PO (11:38)
--- NOTE | 2018-02-02 15:02 | DISCHARGE SUMMARY REPORT-PSYCH ---
Visit Information Visit Dates/Diagnosis' Admission Date: 01/28/18 Discharge Date: 01/15/18 Reason for Admission: Thoughts of suicide and thoughts of homicide Psy Discharge Primary Diag: Depression, Polysubstance Dependence Psy Discharge Secondary Diag: Antisocial personality DO Hospital Course Significant Lab Findings: Lab WBC 13.5 /CUMM H 01/28/18 1605 WBC 14.3 /CUMM H 01/29/18 1348 Methadone Screen 540 NG/ML H 01/28/18 1555 Urine Cocaine Screen > 1000 NG/ML H 01/28/18 1555 Urine Opiates Screen > 4000.00 NG/ML H 01/28/18 1555 Course Complications: The patient developed a fever and there was a suspicion that he had a right knee infection and was therefore transferred to the medical floor after he was seen by the automobile upholsterer apprentice first and then the infectious disease doctor second Consultations: The patient had a history and physical examination by the automobile upholsterer apprentice and follow- up for his low-grade fever and also he was seen by the infectious disease specialist. Please refer to the patient's electronic health record for the details of the H& P, the automobile upholsterer apprentice's follow-up recommendations, and the infectious diseases specialist recommendations Allergies: Coded Allergies: Penicillins (Severe, RASH/HIVES 06/17/17) vancomycin (Severe, HIVES 06/17/17) bee venom protein (honey bee) (ANAPHYLAXIS 06/17/17) Hospital Course/TX Response: The patient was admitted to the inpatient psychiatric unit and I evaluated him on Thursday The patient had a fever and was seen by the automobile upholsterer apprentice who thought that the patient may have infection of his right knee, infectious disease were consulted on the matter, infectious diseases suggested that the patient's knee should be tapped and fluid sent to the laboratory for microscopic examination and culture. Since it was unlikely for the procedure about to be done on the psychiatric unit over a long weekend and because of fear that the patient may become septic since he was still febrile with elevated white blood cell count the hospitalist was consulted on the matter of transferring him to the medical floor to attend to his medical needs and the patient was transferred to the medical floor. Discharge HBIPS - Tobacco Use Treatment Offered Post DC Medications Offered: Not Applicable Post DC Tobacco Treatment Plan: Not Applicable - EtOH/Drug Use D/O Treatment Offered Post DC Medications Offered: NA-No EtOH/Drug Use D/O Post DC EtOH/SubAbuse TX Plan: NA-No EtOH/Drug Use D/O Metabolic Screening - Screen if on a Neuroleptic Medication - Metabolic screening should include: - Blood Pressure, BMI, Glucose or Hgb A1c, & a - Lipid profile from within the past 365 days. Metabolic Screening Patient on a neuroleptic(s) . Enter below results for Hemoglobin A1C, and lipid panel if obtained during the last 365 days. BMI: 26.500 Blood Pressure: 135/61 Laboratory Results From [facility] (If applicable): Lab Cholesterol 126 MG/DL 11/04/17 08 Cholesterol/HDL Ratio 2 % 11/04/17810 HDL Cholesterol 56 mg/dL 11/04/17 08 Hemoglobin A1c 4.8 % 11/04/17810 LDL Cholesterol, Calc 60 mg/dL L 11/04/17810 Triglycerides 50 mg/dL 11/04/17810 Discharge Instructions General Discharge Information Multiple Neuroleptics: ([X]) Not Applicable Discharge Diet Regular Discharge Activity As Tolerated DC Disposition: The patient was discharged to the medical floor Prescriptions Continue taking these medications: Nicotine (Nicotine Patch) 14 MG/24 HOUR PATCH.TD24 14 Milligram On the skin DAILY Qty = 30 Comments: REFUSED Methadone Hydrochloride (Methadone HCl) 10 MG TABLET 20 Milligram ORAL TWICE DAILY Qty = 30 Comments: Last Taken:01/30/18 Time:9:25 AM Oxycodone HCl (Roxicodone) 30 MG TABLET 30 Milligram ORAL EVERY SIX HOURS NEEDED as needed for severe 7-10 Qty = 30 Comments: Last Taken:01/30/18 Time:11:39 AM Clonazepam (Klonopin) 1 MG TABLET 1 Milligram ORAL TWICE DAILY Qty = 30 Comments: Last Taken: Time:9:24 AM Gabapentin (Gabapentin) 300 MG CAPSULE 600 Milligram ORAL EVERY SIX HOURS Qty = 30 Comments: Last Taken:01/30/18 Time:11:39 AM Escitalopram Oxalate (Lexapro) 10 MG TABLET 10 Milligram ORAL DAILY Qty = 30 Comments: Last Taken:01/30/18 Time:9:20 AM Aripiprazole (Abilify) 5 MG TABLET 5 Milligram ORAL AT BEDTIME Qty = 30 Comments: Last Taken:01/30/18 Time:12:20 AM Studies Pending at Discharge None Copies To: N/A
--- NOTE | 2018-02-02 15:08 | Patient Discharge Instructions ---
Psych Discharge Inst General Discharge Information Reason for Admission: Thoughts of suicide and thoughts of homicide Psy Discharge Primary Diag+ Depression, Polysubstance Dependence Psy Discharge Secondary Diag+ Antisocial personality DO Summary Tests/Major Procedures Elevated white blood cell count Studies Pending at DC: X-rays of the right knee were pending at the time of his transfer to the medical floor Patient Instructions Contact Information Your Psychiatrist on [facility] was Monty Schaefer MD * If you are experiencing an emergency related to this hospitalization, please call [phone] to contact the treating psychiatrist or the psychiatrist-on- call. * To Request a copy of your medical records, please contact the Medical Records Department at [phone]. * To request results of studies pending at the time of discharge, please call [phone]. * Continue your Medications until directed to stop by your Healthcare provider. General Medication Information Please continue to take your new medications and your continued home medications , unless otherwise indicated on your discharge medication list, or unless directed by your MD or GENERAL SCRAP WORKER to stop them. Special Instructions Diet Regular Activity As Tolerated - Tobacco Use Treatment Offered Post DC Medications Offered: Not Applicable Post DC Tobacco Treatment Plan: Not Applicable - EtOH/Drug Use D/O Treatment Offered Post DC Medications Offered: NA-No EtOH/Drug Use D/O Post DC EtOH/SubAbuse TX Plan: NA-No EtOH/Drug Use D/O Advance Directives Does the Patient have Medical Advance Directives No/Refused further info Does Pt have Psychiatric Advance Directives? No/Refused further info Does Patient have a Designated Surrogate Decision Maker: No Information About Psychiatric Advance Directives Provided? Refused Discharge Plan Post Hospital Treatment Plan: Transferred to the medical floor
== END 2018-01-29 20:42 | disposition short-term general hospital (02) | DRG 881 ==
LOC: ERH 09:56 → CP SOUTH 17:02 → ERHI 17:02 → CP SOUTH 17:36
PROVIDERS: Emergency Medicine; Internal Medicine
DX: F32.9 Major depressive disorder, single episode, unspecified (principal); F19.20 Other psychoactive substance dependence, uncomplicated
CPT/HCPCS: 36415; 73562-RT; 80307; 87040; 93005; 93010; G0463; G0480

== ENCOUNTER 2018-01-29 19:27 | Inpatient (IN) | payer OTHER, MEDICARE ==
[~2018-01-29] VITALS: Ht 167.6 cm; Wt 74.1 kg
[~2018-01-29 19:27] MED LIST changes: +XANAX1 M1 PO
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
[2018-01-29 22:03] VITALS: BP 122/78
--- NOTE | 2018-01-29 22:04 | Procedure ---
Minor Surgical Procedure Note Date of Procedure: 01/29/18 Procedure Note: Right knee arthrocentesis Consent was obtained and then site marked and prepared in sterile fashion.using a 19 gauge syringe, 355 cc of thin bloody purulent fluid was removed from the right joint space. Samples were sent to the lab for analysis of cell count, culture and crystal analysis. Estimated Blood Loss: minimal Complications: The patient tolerated the procedure well without complications.
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
--- NOTE | 2018-01-30 04:58 | Admission Certification ---
Admission Certification Certification Statement - As attending physician, I certify that at the time of - admission, based on clinical presentation, severity of - symptoms, need for further diagnostic testing and - therapeutic interventions, and risk of adverse outcomes - without in-hospital treatment, in my clinical assessment, - this patient requires an acute hospital stay for a minimum - of two nights or longer. I have also considered psychsocial - factors such as support system, advanced age, financial - issues, cognitive issues, and failed out-patient treatments, - past re-admission history, safety of patient, and lack of - compliance as applicable. Specific rationale supporting this admission is: Right knee septic arthritis
--- NOTE | 2018-01-30 05:11 | PN- Housestaff ---
Subjective Follow-up For: RIGHT KNEE SEPTIC ARTHRITIS Subjective: Patient slept well last night. States that the pain was well controlled after the medications last night. No fevers, vitals stable. Patient admits that he is having thoughts of hurting himself this morning. Review of Systems Constitutional: Reports: see HPI. Objective Last 24 Hrs of Vital Signs/I&O Vital Signs Date Time Temp Pulse Resp B/P B/P Pulse O2 O2 Flow FiO2 Mean Ox Delivery Rate 01/29 2203 98.8 88 16 122/78 95 Room Air Intake & Output 01/30 0800 01/30 0000 01/29 1600 Intake Total Output Total Balance Patient 74.843 kg Weight Weight Reported by Patient Measurement Method Physical Exam General Appearance: Alert, Oriented X3, Cooperative, No Acute Distress Skin: No Rashes, No Breakdown Skin Temp/Moisture Exam: Warm/Dry Sepsis Skin Exam (color): Normal for Ethnicity HEENT: Atraumatic Neck: Supple Cardiovascular: Normal S1, Normal S2 Lungs: Clear to Auscultation, Normal Air Movement Extremities: right knee has a bandage placed s/p arthrocentesis last night. the tightness around the knee is slightly improved. Assessment/Plan Assessment: Patient is 42 year old male with PMH of seizure disorder, SI/HI, HTN, Hepatitis C, chronic back pain, disc herniation, bipolar disorder, opioid dependence on methadone, s/p right knee replacement at [facility] with Dr. Gómez 1 year ago, was admitted to [facility] of 01/28 for SI/HI. Patient was today transferred to medical service due to swelling and pain in the right knee. Patient reports that after getting prosthetic knee replacement at [facility] 1 year ago, the surgical procedure was complicated by infection, he received antibiotics and had his right knee replaced again. he reports that since then his right knee has been asymptomatic. Patient states that the current pain in the right knee started 2 days day, sharp in nature, constant, 8/10 at worse. It was also accompanied with fevers, Tmax 100.7 at 7 am on 01/29. Patient was evaluated by ID at [facility] at that point and recommended to have knee arthrocentesis done. Labs and vitals as above Knee x ray (RT) 01/29 1. Mild prepatellar soft tissue swelling and suprapatellar knee joint Effusion. Findings are nonspecific and may be related to a septic joint versus inflammatory change. Clinical correlation requested. 2. No acute fracture or dislocation. No hardware failure. Assessment and plan: Septic arthritis: Patient has remained afebrile overnight. Bedside knee arthrocentesis was performed yesterday, 35 cc thin bloody turbid fluid was obtain. awaiting cell count and culture results. Patient had knee replacement done in [facility] twice 1 year ago, he would like to follow up with an orthopedic surgeon with [place]. Ortho consult is placed for today. will continue patient on IV clindamycin as he is allergic to penicillin and vancomycin. Dr. Sotomayor was following the patient in [facility], please place an ID consult again as the patient is admitted to from ICU. Will repeat CBC tomorrow SI/HI Patient denies any current SI/HI, sitter is ordered. Please consult psy for eval Methdone dependence will continue 20 mg BID. Depression WIll continue all chronic medication such as aripiprazole, lexapro Patient was recently placed on klonapin in inpatient psyc, will continue Current smoker Patient smokes half a pack per day, will start on 14 mcg nicotine patch. DVT ppx SC heprin Patient is full code. Problem List: 1. Septic arthritis of knee, right Pain Ratin Pain Location: right knee Pain Goal: Pain 4 or less Pain Plan: gabapentin, oxycodon Tomorrow's Labs & Rationales: cbc
[2018-01-30 06:10] VITALS: BP 118/70
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
[2018-01-30 08:41] LABS: ABSOLUTE BASOPHIL COUNT 0 /CUMM (0.0-0.2); ABSOLUTE EOSINOPHIL COUNT 0 /CUMM (0.0-0.7); ABSOLUTE GRANULOCYTE CT 6.2 /CUMM (1.4-6.5); ABSOLUTE LYMPH COUNT 3.2 /CUMM (1.2-3.4); ABSOLUTE MONOCYTE COUNT 0.9 /CUMM (0.10-0.60); BASOPHIL % 0.4 % (0.0-2.0); EOSINOPHIL % 0.2 % (0-5); GRANULOCYTE % 59.9 % (42.2-75.2); HEMATOCRIT 40.8 % (42-52); MEAN CORPUSCULAR HGB 30.5 PG (27.0-31.0); MEAN CORPUSCULAR HGB CONC 33.7 G/DL (33.0-37.0); MEAN CORPUSCULAR VOLUME 90.3 FL (80.0-94.0); MEAN PLATELET VOLUME 8.4 FL (7.4-10.4); PLATELET COUNT 244 /CUMM (130-400); RBC DISTRIBUTION WIDTH 13.2 % (11.5-14.5); RED BLOOD CELL CT 4.51 /CUMM (4.70-6.10); WHITE BLOOD CELL COUNT 10.4 /CUMM (4.8-10.8)
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
--- NOTE | 2018-01-30 11:30 | Patient Discharge Instructions ---
Discharge Instructions General Discharge Information You were seen/treated for: right Knee septic arthritis Suicidal ideation Special Instructions: We are referring you to [facility] for further evaluation and management of right knee septic arthritis Diet Continue normal diet: Yes Acute Coronary Syndrome Inclusion Criteria At DC or during hospital stay patient has or had the following: ACS DIAGNOSIS No Discharge Core Measures Meds if any: Prescribed or Continued at Discharge Meds if any: NOT Prescribed or Continued at Discharge Congestive Heart Failure Inclusion Criteria At DC or during hospital stay patient has or had the following: CHF DIAGNOSIS No Discharge Core Measures Meds if any: Prescribed or Continued at Discharge Meds if any: NOT Prescribed or Continued at Discharge Cerebrovascular accident Inclusion Criteria At DC or during hospital stay patient has or had the following: CVA/TIA Diagnosis No Discharge Core Measures Meds if any: Prescribed or Continued at Discharge Meds if any: NOT Prescribed or Continued at Discharge Venous thromboembolism Inclusion Criteria VTE Diagnosis No VTE Type NONE VTE Confirmed by (Test) NONE Discharge Core Measures - Per Current guidelines, there needs to be overlap - treatment for the first 5 days of Warfarin therapy. - If discharged on Warfarin prior to 5 days of - overlap therapy, the patient will need to be - assessed for post discharge needs including - *Post discharge parental anticoagulation - *Warfarin and/or parental anticoagulation education - *Follow up date to check INR post discharge At least 5 days overlap therapy as Inpatient No Meds if any: Prescribed or Continued at Discharge Note: Overlap Therapy is Warfarin and Anticoagulant Meds if any: NOT Prescribed or Continued at Discharge
[2018-01-30] MEDS ORDERED: GABAPENTIN300 M2 PO (11:38)
[2018-01-30] MEDS ORDERED: ABILIFY5 M1 PO (11:38)
[2018-01-30] MEDS ORDERED: LEXAPRO10 M1 PO (11:38)
[2018-01-30] MEDS ORDERED: METHADONE HCL10 M1 PO (11:38)
[2018-01-30] MEDS ORDERED: NICOTINE PATCH1 EAC2 TOP (11:38)
[2018-01-30] MEDS ORDERED: KLONOPIN1 M1 PO (11:38)
[2018-01-30] MEDS ORDERED: ROXICODONE30 M1 PO (11:38)
[2018-01-30 14:06] VITALS: BP 110/64
[2018-01-30 14:13] VITALS: BP 110/64
== END 2018-01-30 15:50 | disposition short-term general hospital (02) | DRG 560 ==
LOC: 2NB 20:45 → ENPENDDIS 01-30 11:30 → 2NB 01-30 15:50
PROVIDERS: Internal Medicine
PROC: 0S9C3ZX Drainage of Right Knee Joint, Percutaneous Approach, Diagnostic (ICD-10-PCS; principal; 2018-01-29)
DX: T84.53XA Infection and inflammatory reaction due to internal right knee prosthesis, initial encounter (principal); R45.851 Suicidal ideations; F11.20 Opioid dependence, uncomplicated; F17.200 Nicotine dependence, unspecified, uncomplicated; B18.2 Chronic viral hepatitis C; F60.2 Antisocial personality disorder; F31.9 Bipolar disorder, unspecified; I10 Essential (primary) hypertension; N52.9 Male erectile dysfunction, unspecified; G89.29 Other chronic pain; Z96.651 Presence of right artificial knee joint
CPT/HCPCS: 2NBP; 87075; 36592; 82436; 87040; 87070; 87071; J1644

== ENCOUNTER 2018-04-30 23:10 | Inpatient (IN) | payer OTHER, MEDICARE ==
[~2018-04-30] VITALS: Ht 175.3 cm; Wt 81.6 kg
[~2018-04-30 23:10] MED LIST changes: +ABILIFY5 M1 PO; +ROXICODONE30 M1 PO
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
[2018-05-01 00:21] LABS: ABSOLUTE BASOPHIL COUNT 0.1 /CUMM (0.0-0.2); ABSOLUTE EOSINOPHIL COUNT 0.1 /CUMM (0.0-0.7); ABSOLUTE GRANULOCYTE CT 5.5 /CUMM (1.4-6.5); ABSOLUTE LYMPH COUNT 3.8 /CUMM (1.2-3.4); ABSOLUTE MONOCYTE COUNT 0.5 /CUMM (0.10-0.60); BASOPHIL % 0.7 % (0.0-2.0); GRANULOCYTE % 55.4 % (42.2-75.2); MEAN CORPUSCULAR HGB 27.9 PG (27.0-31.0); MEAN CORPUSCULAR HGB CONC 33.8 G/DL (33.0-37.0); MEAN CORPUSCULAR VOLUME 82.6 FL (80.0-94.0); PLATELET COUNT 268 /CUMM (130-400); RBC DISTRIBUTION WIDTH 13.8 % (11.5-14.5); RED BLOOD CELL CT 5.44 /CUMM (4.70-6.10); WHITE BLOOD CELL COUNT 9.9 /CUMM (4.8-10.8)
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
--- NOTE | 2018-05-01 20:06 | ED PSY CRISIS COLLATERAL NOTE ---
See Addendum Collateral Note Collateral Note Family/Inform/Elle Contacts: 05/01/18: Crisis was unable to re-evaluate patient as he has been sleeping since 4pm.
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
[2018-05-03 16:28] VITALS: BP 130/78
[2018-05-03 20:01] VITALS: BP 142/86
[2018-05-04 05:43] VITALS: BP 126/65
[2018-05-04 07:33] VITALS: BP 136/79
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
[2018-05-04 19:34] VITALS: BP 136/90
[2018-05-05 06:30] VITALS: BP 131/86
[2018-05-05 08:02] VITALS: BP 124/76
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
--- NOTE | 2018-05-05 15:04 | CP SOUTH PROGRESS NOTE PSYCH ---
Psych (Inpt) Progress Note Progress Note Include the following elements, when applicable: Involvement in the active treatment of the patient with behavioral observations of the patient and the patient's response to the treatment. Review of the ongoing treatment process in the context of the treatment plan. Indication of how multi-disciplinary staff members are carrying out the treatment plan. Plans for future interventions and recommendations for revision of the treatment plan. Liaison with other physicians/providers. Progress Note: Patient was discussed at team meeting this morning. "I am feeling awesome" Patient initially says that he is feeling very well but then states that he is anxious about his legal difficulties. He is also anxious that his sister is angry with him. He is not suicidal or homicidal. Sleep and appetite are good. He is social and pleasant with peers. There are no psychotic symptoms. Mental status examination: Alert and oriented 3. Patient is in a wheelchair. Eye contact good, speech normal in rate, rhythm, volume and tone. Mood is euthymic. Affect mildly anxious regarding psychosocial stressors but reactive with full range. Not suicidal or homicidal. Thought process normal in tempo, stream and form with no delusions or obsessions. Attention and concentration good. No perceptual abnormality. Impulse control good. Recent and remote memory intact. Intelligence level average, fund of knowledge average, use of language appropriate. Insight fair, judgment unimpaired. Medications: Aripiprazole (Abilify) 5 MG TABLET 5 MG PO AT BEDTIME Clonazepam (Klonopin) 1 MG TABLET 1 MG PO BID Escitalopram Oxalate (Lexapro) 10 MG TABLET 10 MG PO DAILY Gabapentin 300 MG CAPSULE 600 MG PO Q6 PAIN Methadone Hydrochloride (Methadone HCl) 10 MG TABLET 20 MG PO BID Nicotine (Nicotine Patch) 14 MG/24 HOUR PATCH.TD24 Oxycodone HCl (Roxicodone) 30 MG TABLET 30 MG PO Q6P PRN severe 7-10 #30 TAB Diagnosis: Unspecified depressive disorder Rule out substance-induced mood disorder Cocaine use disorder severe Opiate use disorder severe Cannabis use disorder severe Sedative-hypnotic anxiolytic use disorder History of TBI Ibycu-wgi-bjnk amputation on left side Status post right knee replacement Assessment: The patient is doing well. He has some anxiety regarding psychosocial stressors. Family meeting will be arranged to address his discord with his sister. He is sleeping and eating well. He is not suicidal or homicidal. He is tolerating his medications well without side effects. No medication changes have been made during this admission. Treatment plan: -Continue medications as ordered -Continue participation in individual and group psychotherapy -Family meeting will be arranged per patient request -It is anticipated this will be a brief admission for crisis intervention. Possible discharge tomorrow with referral to an intensive outpatient level of care.
--- NOTE | 2018-05-05 18:28 | SOCIAL WORKER PROG NOTE PSYCH ---
Social Work Progress Note Progress Note This jingle writer spoke with [facility] in [place] regarding referrals to IOP and medication management. This jingle writer was informed that they have walk in hours for IOP intake Mon-Fri 12-3pm. Once he has started IOP the patient can anticipate to been seen by a prescriber within 2 weeks. This jingle writer spoke with patient's sister, Wander by phone ([phone]) and scheduled a phone family meeting for tomorrow at 10:30am. Wander stated that she felt that the patient needed inpatient/rehab and marybel discuss this further tomorrow. This jingle writer met with patient. He was informed of the above information and decided to pursue IOP at [facility] rather than [facility] or any other program. Patient was informed of his sister's suggestion of inpatient/rehab. Patient stated that he is unable to enter rehab due to his pain medications. He stated that he would like to pursue IOP at [facility] before considering rehab. Patient reported ongoing depression and SI with a thought to hang himself if he were to discharge. He stated that he feels safe on this unit and would inform staff immediately if feeling unsafe. Patient discussed his sadness about spending little time with his son and identified his wish to build a relationship with his son as a motivator for treatment. Patient denied HI/ hallucinations. This jingle writer spoke with Sharad Mcnamara pt's PO at [place] [facility] ). Elizabeth Mcnamara was informed of patient's admission and possible discharge for tomorrow with a referral to [facility] for IOP. Elizabeth Mcnamara stated that the patient has a court date scheduled for 05/31/18 in [place] and 05/26/18 in [place]. Patient was informed.
[2018-05-05 19:35] VITALS: BP 128/72
[2018-05-06 07:40] VITALS: BP 115/73
--- NOTE | 2018-05-06 12:57 | Patient Discharge Instructions ---
Psych Discharge Inst General Discharge Information Reason for Admission: suicidal ideation Psy Discharge Primary Diag+ Depression Psy Discharge Secondary Diag+ Polysubstance Dependence Summary Tests/Major Procedures Lab ALT 76 U/L H 05/01/18 0005 AST 49 U/L 05/01/18 0005 Alkaline Phosphatase 110 U/L 05/01/18 0005 Cholesterol 128 MG/DL 05/05/18 0635 Cholesterol/HDL Ratio 4 % 05/05/18 0635 Glucose 112 mg/dL H 05/01/18 0005 HDL Cholesterol 29 mg/dL L 05/05/18 0635 LDL Cholesterol Direct 50.70 mg/dL 05/05/18 0635 LDL Cholesterol, Calc ND MG/DL 05/05/18 0635 Total Protein 8.4 g/dL H 05/01/18 0005 Triglycerides 513 mg/dL H 05/05/18 0635 Methadone Screen > 735 NG/ML H 05/01/18 0012 Urine Cocaine Screen > 1000 NG/ML H 05/01/18 0012 Urine Opiates Screen > 4000.00 NG/ML H 05/01/18 0012 Studies Pending at DC: none Patient Instructions Contact Information Your Psychiatrist on [facility] was Vivian Ambrocio MD * If you are experiencing an emergency related to this hospitalization, please call [phone] to contact the treating psychiatrist or the psychiatrist-on- call. * To Request a copy of your medical records, please contact the Medical Records Department at [phone]. * To request results of studies pending at the time of discharge, please call [phone]. * Continue your Medications until directed to stop by your Healthcare provider. General Medication Information Please continue to take your new medications and your continued home medications , unless otherwise indicated on your discharge medication list, or unless directed by your MD or STAY CUTTER to stop them. Special Instructions Diet Regular Activity As Tolerated - Tobacco Use Treatment Offered Post DC Medications Offered: Script Given-See Med List Post DC Tobacco Treatment Plan: Refused Tobacco Tx Pgm - EtOH/Drug Use D/O Treatment Offered Post DC Medications Offered: NA-No EtOH/Drug Use D/O Post DC EtOH/SubAbuse TX Plan: NA-No EtOH/Drug Use D/O Advance Directives Does the Patient have Medical Advance Directives No/Refused further info Does Pt have Psychiatric Advance Directives? No/Refused further info Does Patient have a Designated Surrogate Decision Maker: No Information About Psychiatric Advance Directives Provided? Refused Discharge Plan Post Hospital Treatment Plan: Discharged home with referral to [facility] at [facility] per patient's request
[2018-05-06] MEDS ORDERED: ABILIFY5 M1 PO (13:04)
[2018-05-06] MEDS ORDERED: NICOTINE PATCH1 EAC2 TOP (13:04)
[2018-05-06] MEDS ORDERED: LEXAPRO10 M1 PO (13:04)
--- NOTE | 2018-05-06 13:22 | DISCHARGE SUMMARY REPORT-PSYCH ---
Visit Information Visit Dates/Diagnosis' Admission Date: 05/03/18 Discharge Date: 05/06/18 Reason for Admission: suicidal ideation Psy Discharge Primary Diag: Depression Psy Discharge Secondary Diag: Polysubstance Dependence Hospital Course Course Complications: none Consultations: The patient had a full physical examination and review of systems carried out by the Hospitalist on admission. These notes have been reviewed and are appreciated. They are part of the patient's medical record. Allergies: Coded Allergies: Penicillins (Severe, RASH/HIVES 06/17/17) vancomycin (Severe, HIVES 06/17/17) bee venom protein (honey bee) (ANAPHYLAXIS 06/17/17) Hospital Course/TX Response: 42-year-old male well-known to this service who presented to the emergency room reporting increased depression with suicidal and homicidal ideation. In the emergency room urine was positive for opiates and methadone which are prescribed. Urine was also positive for cocaine. The patient was recently discharged from a rehab following an knee replacement. He relapsed relatively soon after discharge. Regarding stressors he reported that he felt he was becoming distance from his 9-year-old son as his 's new boyfriend is spending a lot of time with him. The patient also reported that his sister was angry with him from relapsing. The patient's preadmission medication was recommenced. He tolerated his medication well with no side effects. The patient is a smoker and used a nicotine patch whilst in hospital. He agreed to continue this on discharge. The patient reconstituted quickly. His mood improved. Following a family meeting with his sister on May 06 he reported feeling more positive about his future. His family continues to be supportive. The patient slept and ate well throughout his admission. He was pleasant, appropriate and interactive with staff and peers. He was not suicidal or homicidal at any time. There were no psychotic symptoms at any time. The patient was seen on the day of discharge. He was euthymic with a good affect of range. He was future oriented. He was motivated to engage with a dual diagnosis outpatient program at [facility]. At the time of discharge the patient is not suicidal or homicidal. Discharge HBIPS - Tobacco Use Treatment Offered Post DC Medications Offered: Script Given-See Med List Post DC Tobacco Treatment Plan: Refused Tobacco Tx Pgm - EtOH/Drug Use D/O Treatment Offered Post DC Medications Offered: NA-No EtOH/Drug Use D/O Post DC EtOH/SubAbuse TX Plan: NA-No EtOH/Drug Use D/O Metabolic Screening - Screen if on a Neuroleptic Medication - Metabolic screening should include: - Blood Pressure, BMI, Glucose or Hgb A1c, & a - Lipid profile from within the past 365 days. Metabolic Screening Lab Glycosylated hemoglobin on November 04, 2017: 4.8 Cholesterol 128 MG/DL 05/05/18 0635 Cholesterol/HDL Ratio 4 % 05/05/18634 HDL Cholesterol 29 mg/dL L 05/05/18634 LDL Cholesterol Direct 50.70 mg/dL 05/05/18 06 LDL Cholesterol, Calc ND MG/DL 05/05/18 06 Triglycerides 513 mg/dL H 05/05/18 06 () Not Applicable, patient not on a neuroleptic. OR () Patient on a neuroleptic(s) . Enter below results for Hemoglobin A1C, and lipid panel if obtained during the last 365 days. BMI: 26.500 Blood Pressure: 115/73 Laboratory Results From [facility] (If applicable): Discharge Instructions General Discharge Information Multiple Neuroleptics: ([x]) Not Applicable OR Document below three failed attempts at monotherapy, or a plan to taper to monotherapy, or augmentation of Clozapine. () Discharge Diet Regular Discharge Activity As Tolerated DC Disposition: Patient is being discharged home with follow-up as an intensive outpatient program Referrals Ordered Referrals [facility] 05/07/18 [address] [place] [address] [facility] [address] [place], [place] [phone] Patient will utilize walk in hours for IOP intake on 05/07/18 between 12pm and 3pm. IOP intake walk in hours: Thursday-Thursday 12pm-3pm Patient will schedule an appointment with a prescriber when he attends the intake. Provider Referral 05/12/18 For Providers: [[facility]] For Groups: [[facility]] [facility] [address] [phone] Group meets every other Thursday at 4pm Next group: 05/12/18, at 4pm Prescriptions Continue taking these medications: Methadone Hydrochloride (Methadone HCl) 10 MG TABLET 20 Milligram ORAL TWICE DAILY Qty = 30 Comments: Last Taken:05/06/18 Time: 12:26 PM Oxycodone HCl (Roxicodone) 30 MG TABLET 30 Milligram ORAL EVERY SIX HOURS NEEDED as needed for severe 7-10 Qty = 30 Comments: Last Taken:05/06/18 Time: 7:19 AM Clonazepam (Klonopin) 1 MG TABLET 1 Milligram ORAL TWICE DAILY Qty = 30 Comments: Last Taken:05/06/18 Time: 8:05 AM Gabapentin (Gabapentin) 300 MG CAPSULE 600 Milligram ORAL EVERY SIX HOURS Qty = 30 Comments: Last Taken:05/06/18 Time: 12:26 PM Nicotine (Nicotine Patch) 14 MG/24 HOUR PATCH.TD24 14 Milligram On the skin DAILY Qty = 30 This prescription has been renewed Escitalopram Oxalate (Lexapro) 10 MG TABLET 10 Milligram ORAL DAILY Qty = 14 Comments: Last Taken:05/06/18 Time: 8:05 AM This prescription has been renewed Aripiprazole (Abilify) 5 MG TABLET 5 Milligram ORAL AT BEDTIME Qty = 14 Comments: Last Taken:05/06/18 Time: 8:05 AM This prescription has been renewed Studies Pending at Discharge none Copies To: .
--- NOTE | 2018-05-06 18:33 | SOCIAL WORKER PROG NOTE PSYCH ---
Social Work Progress Note Progress Note This check writer salesperson met with patient. We called his sister, Angie Young ([phone] ), for a family meeting. We discussed rehab. Patient is not agreeable to rehab at this time and also has barriers to entering rehab (medical as well as some current prescribed medications). Patient maintains that he would like to attend [facility] and plans to go to their walk in intake hours tomorrow. He stated that he preferred [facility] over other clinics/programs as he lives close to [facility]. Patient identified probation as a motivator to attend treatment. His sister reported that the patient had not followed through with treatment in the past. Patient denied SI/HI/hallucinations and his sister stated that she did not have any safety concerns or concerns about discharge today. We discussed a safety plan in which the patient would "talk to my mother or sister." He stated that he would also utilize the crisis numbers/warm lines which he accepted upon discharge today. He stated that he also plans on attending AA meetings and would both obtain a meeting book from nursing staff and identify meetings he could attend. Patient was agreeable to calling his forestry technical officer after this meeting, which his sister was informed of. Patient and this check writer salesperson called his PO, Sharad Mcnamara ([phone]). We left a vm informing of today's discharge and the plan to go to [facility] for IOP tomorrow for a walk in assessment. Patient also provided a phone number to Elizabeth Mcnamara where he can be reached. Patient stated that he would contact his PO once he returns home and has the phone number at home. Patient was informed that Elizabeth Mcnamara contacted this check writer salesperson with the following court dates: 05/26/18 at [place] 05/31/18 at [place] and that this check writer salesperson would not need to send any documentation. Patient was anxious about this and, upon his request, this check writer salesperson left a vm for his PO to confirm. A return call was not received today and patient stated that he would contact him in the morning. Faxed Referral(s) Referred To: [facility] Documents sent: Health Summary Faxed to: [facility] Fax #: [phone] Faxed by: Linsey KAURW Date faxed: 05/06/18 Time Faxed: [phone]
== END 2018-05-06 17:30 | DRG 881 ==
LOC: ERH 23:10 → CP SOUTH 05-03 12:45 → ERHI 05-03 12:45 → ENTRNSPT 05-03 15:56 → EDTRNSPTSTS 05-03 16:02 → EDTRNSPT 05-03 16:02 → CP SOUTH 05-03 16:22 → CMPTRNSPT 05-03 16:24 → CP SOUTH 05-03 21:46
PROVIDERS: Pediatrics; Psychiatry & Neurology Psychiatry
DX: F32.9 Major depressive disorder, single episode, unspecified (principal); F19.20 Other psychoactive substance dependence, uncomplicated; R45.851 Suicidal ideations; G40.909 Epilepsy, unspecified, not intractable, without status epilepticus; Z89.612 Acquired absence of left leg above knee; I10 Essential (primary) hypertension; B18.2 Chronic viral hepatitis C; G89.29 Other chronic pain; M54.9 Dorsalgia, unspecified; Z96.651 Presence of right artificial knee joint; Z88.0 Allergy status to penicillin; Z91.030 Bee allergy status; Z88.1 Allergy status to other antibiotic agents
CPT/HCPCS: 36415; 80307; 82652; 84403; 93005; 93010; G0463; G0480